=== PATIENT | female | born 1945 | race Caucasian/White ===

== ENCOUNTER 2020-10-21 08:40 | Outpatient (REF) | payer MEDICARE, SELFPAY ==
--- NOTE | ~2020-10-21 | MM_ITS ---
EXAMINATION: BONE DENSITOMETRY CLINICAL INDICATION: Screening for osteoporosis. COMPARISON: Previous BD dated 05/04/2018 and baseline BD dated 06/16/2007. TECHNIQUE: Using a Caption Data DXA System (software version: 13.1) manufactured by [employer], dual-energy x-ray absorptiometry was performed of the lumbar spine and left hip. The images are of good technical quality. Summary results are attached. FINDINGS: AP SPINE L1-L2 (excluding L3 and L4): The data of L1-L4 has been changed to exclude the L3 and L4 vertebral bodies, because degenerative changes at these levels may cause overestimation of lumbar spine density. Current: BMD 0.805 g/cm2, Z-score -1.3, T-score -3.0, osteoporosis, 9.4% increase from previous, 3.9% decrease from baseline (<5% change is not significant). Prior: BMD 0.736 g/cm2. Baseline: BMD 0.838 g/cm2. LEFT FEMUR, NECK: Current: BMD 0.709 g/cm2, Z-score -0.5, T-score -2.4, osteopenia. Prior: BMD 0.717 g/cm2. Baseline: BMD 0.759 g/cm2. LEFT FEMUR, TOTAL: Current: BMD 0.846 g/cm2, Z-score 0.3, T-score -1.3, osteopenia, 8.7% increase from previous, 1.0% increase from baseline (<5% change is not significant). Prior: BMD 0.778 g/cm2. Baseline: BMD 0.838 g/cm2. IDENTIFIED RISK FACTORS: Menopause, height loss, osteoporosis. HISTORY OF FRACTURE: None listed. MEDICATIONS: Calcium, vitamin D, Fosamax. MM/XR DEXA axial skeleton IMPRESSION: 1. DIAGNOSIS: Osteoporosis based on the lowest T-score value of -3.0 in the lumbar spine applying World Health Organization criteria. 2. 10-YEAR FRACTURE RISK PREDICTION, FRAX: Major osteoporotic fracture (clinical spine, forearm, hip or shoulder) 15.5%. Hip fracture 4.4%. 3. Treatment Recommendations: NOF guidelines recommend consideration for treatment in postmenopausal women and men age 50 and older presenting with the following: -A hip or vertebral (clinical or morphometric) fracture. -T-score less than or equal to -2.5 at the femoral neck or spine after appropriate evaluation to exclude secondary causes. -Low bone mass at the hip or spine and a 10-year fracture probability by FRAX of greater than or equal to 3% for hip fracture or greater than or equal to 20% for major osteoporotic fracture based on the [place] adapted WHO algorithm. 4. Other Recommendations: All treatment decisions require clinical judgment and consideration of individual patient factors, including patient preferences, comorbidities, previous drug use, risk factors not captured in the FRAX model (e.g. frailty, falls, vitamin D deficiency, increased bone turnover, interval significant decline in bone density) and possible under or overestimation of fracture risk by FRAX. Additional medical evaluation for secondary cause of low bone mineral density may be appropriate. FUTURE SCAN RECOMMENDATION: People with diagnosed cases of osteoporosis or at high risk for fracture should have regular bone mineral density tests. For patients eligible for Medicare, routine testing is allowed once every 2 years. The testing frequency can be increased to one year for patients who have rapidly progressing disease, those who are receiving or discontinuing medical therapy to restore bone mass, or have additional risk factors.
--- NOTE | ~2020-10-21 | MM_ITS ---
EXAMINATION: MM SCREENING DIGITAL BREAST TOMOSYNTHESIS, BILATERAL CLINICAL INFORMATION: Screening. Asymptomatic. The lifetime risk of breast cancer based on the Tyrer-Cuzick Model is 4.5%. COMPARISON: Mammography: October 16, 2019 and studies dating back to January 17, 2012 TECHNIQUE: Digital breast tomosynthesis is performed in both the craniocaudal and mediolateral oblique views along with computer-aided detection (CAD). Synthesized 2D images are generated from the tomosynthesis. FINDINGS: There are scattered areas of fibroglandular density (ACR BI-RADS breast composition Category b). There are no significant masses, abnormal calcifications, or other abnormalities. MM/MM tomosynthesis screening BI IMPRESSION: There are no significant changes from prior study. ASSESSMENT: BI-RADS 1: Negative RECOMMENDATION: Routine annual mammography screening. This patient's information was entered into a reminder system with a target due date for their next mammogram.
== END 2020-10-21 08:41 | disposition home or self-care (01) ==
LOC: HO.MAMMO 08:40
PROVIDERS: Visit Provider Internal Medicine
DX: Z13.820 Encounter for screening for osteoporosis (principal); Z78.0 Asymptomatic menopausal state; Z12.31 Encounter for screening mammogram for malignant neoplasm of breast
CPT/HCPCS: 77063; 77067; 77080

== ENCOUNTER 2021-04-13 08:04 | Outpatient (REF) | payer MEDICARE, SELFPAY ==
[2021-04-13 10:12] LABS: MANUAL DIFF FLAG NO
[2021-04-13 10:24] LABS: Basophils Absolute Auto 0.1 X10*3/uL (0.0-0.2); Basophils Percent Auto 0.6 % (0-2); Eosinophils Absolute Auto 0.4 X10*3/uL (0.0-0.4); Eosinophils Percent Auto 4.6 % (0-4); Hematocrit 40.1 % (37-47); Hemoglobin 13.1 g/dl (12.0-16.0); Imm Gran Abs Auto 0.03 X10*3/uL (0.00-0.03); Imm Gran Pct Auto 0.3 % (0.0-0.4); Lymphocytes Absolute Auto 2.2 X10*3/uL (1.2-4.9); Lymphocytes Percent Auto 22.6 % (20-40); Mean Corpuscular HGB Conc 32.7 g/dl (31.0-35.0); Mean Corpuscular Hemoglobin 30.2 pg (27.0-33.0); Mean Corpuscular Volume 92.4 fL (80-98); Mean Platelet Volume 10.6 fL (9.4-12.3); Monocytes Absolute Auto 0.9 X10*3/uL (0.1-1.2); Monocytes Percent Auto 9.1 % (2-11); Neutrophils Percent Auto 62.8 % (45-73); Platelet Count 402 X10*3/uL (160-400); Red Blood Count 4.34 X10*6/uL (4.20-5.50); Red Cell Distribution Width 13.2 % (11.0-16.0); White Blood Count 9.5 X10*3/uL (4.8-10.8)
[2021-04-13 11:01] LABS: Alanine Aminotransferase 31 U/L (0-31); Albumin Level 4.1 g/dL (3.5-5.0); Alkaline Phosphatase 66 U/L (39-117); Anion Gap 16 (12-20); Aspartate Amino Transferase 24 U/L (5-31); Bilirubin Total 0.5 mg/dL (0.0-1.0); Blood Urea Nitrogen 38 mg/dL (9-16); Calcium 9.5 mg/dL (8.4-10.2); Carbon Dioxide 24 mmol/L (22-29); Chloride 101 mmol/L (96-108); Cholesterol 200 mg/dL; Estimated Glomerular Filt Rate 37; Glucose Fasting 115 mg/dL (60-99); HDL Cholesterol 66 mg/dL; LDL Cholesterol Calculated 117 mg/dl; Potassium 4.9 mmol/L (3.3-5.1); Sodium 136 mmol/L (135-145); Total Protein 7.3 g/dL (6.5-8.0); Triglycerides 87 mg/dL
== END 2021-04-13 08:05 | disposition home or self-care (01) ==
LOC: HO.10HDL 08:04
PROVIDERS: Visit Provider Internal Medicine
DX: Z00.00 Encounter for general adult medical examination without abnormal findings (principal); E11.9 Type 2 diabetes mellitus without complications
CPT/HCPCS: 36415; 80053; 80061; 85025

== ENCOUNTER 2021-06-15 08:54 | Day surgery (SDC) | payer MEDICARE, SELFPAY ==
[2021-06-05 15:33] VITALS: BMI 26.5
--- NOTE | 2021-06-11 13:52 | MHC.SHP ---
Pre-Procedural Eval Section A Date of Service: 06/11/21 The patient is an INPATIENT: No Changes since office visit: No Cold of Flu in the past 2 weeks, No New Medical Problems, No Changes in Medication and No Patient answered all questions The History & Physical has been completed within 30 days and I have reviewed it.: Yes Section B Chief Complaint: Right Eye Cataract Allergies: Allergies Allergy/AdvReac Type Severity Reaction Status Date / Time Sulfa (Sulfonamide Allergy Mild childhood Verified 06/05/21 15:17 Antibiotics) allergy [Sulfa (Sulfonamides)] per patient-? seizure(was told by mother) Plan Diagnosis/Plan: Unchanged I have reviewed the history and physical and performed a pertinent physical examination on my patient. No changes have occurred unless specified.
--- NOTE | 2021-06-12 13:46 | HO.ANESPROP2 ---
Documented by User: Elaine Clemente NP 06/12/21 13:46 HPI - Anesthesia Eval Consult details Narrative: 75yo F for Right Cataract Multifocal with IOL Insertion PCP cleared No previous cataract on file PMFSH Active Problems Active Problems: All Active Problems (Updated 06/05/21 @ 15:33 by Anita Caal, DARLENE) Adult general medical exam (Acute) Abdominal pain (Acute) Pre-op exam (Acute) Screening for colon cancer (Acute) Hypertension (Acute) Past Medical History Medical History Arthritis Asthma COVID-19 vaccine series completed Hypertension Osteoporosis Screening for colon cancer Family History Family History Father Alzheimers disease Mother CHF (congestive heart failure) Stroke Hypertension Surgical History Surgical History H/O colonoscopy Social History Social History Housing: House Are you a primary child care education coordinator to a significant other at home: No Do you presently have visiting nurse or other home services: No Alcohol intake: current Alcohol intake frequency: holidays/special occasions only Patient Tobacco Use Status: Never used Tobacco e-Cigarette/Vaping Use: Never Used Second Hand Smoke Exposure: No Use of substances other than those prescribed or required for medical reasons: No Have you been hit, kicked, punched, or otherwise hurt by someone within the past year? If so, by whom?: No Are you DNR?: No Advance Directives: Yes Advance Directives Information Provided: No (will bring copy DOS) Advance Directives on File: Yes Advance Directives Date on File: 06/15/21 Recently lost weight without trying: No Eating poorly because of decreased appetite: No Nutrition Risks: No Nutritional Risk Poor oral hygiene: No service: No 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al status: retired Meds Allergies Allergy/AdvReac Type Severity Reaction Status Date / Time Sulfa (Sulfonamide Allergy Mild childhood Verified 06/15/21 10:26 Antibiotics) allergy [Sulfa (Sulfonamides)] per patient-? seizure(was told by mother) Home Medications Medication Instructions Recorded Confirmed Last Taken Type alendronate 70 mg tablet 70 mg PO QWEEK 07/22/20 06/05/21 Unknown History hydrochlorothiazide 25 mg tablet 25 mg PO DAILY tab 01/02/21 06/05/21 Unknown History ascorbic acid (vitamin C) 500 mg 500 mg PO DAILY 06/05/21 06/05/21 Unknown History tablet (Vitamin C) cholecalciferol (vitamin D3) 25 25 mcg PO DAILY 06/05/21 06/05/21 Unknown History mcg (1,000 unit) capsule (Vitamin D3) multivitamin 1 tab PO DAILY 06/05/21 06/05/21 Unknown History Exam Exam Date and Time: June 12, 2021 1346 Height,Weight and Vital Signs: Height 5 ft 3 in Weight 68.039 kg Assessment and Plan Assessment Anesthesia Assessment: Chart Reviewed Documented by User: Hortencia Jones MD 06/15/21 11:18 [facility] Past Medical History Medical History Arthritis Asthma COVID-19 vaccine series completed Hypertension Osteoporosis Screening for colon cancer Family History Family History Father Alzheimers disease Mother CHF (congestive heart failure) Stroke Hypertension Surgical History Surgical History H/O colonoscopy Social History Social History Housing: House Are you a primary child care education coordinator to a significant other at home: No Do you presently have visiting nurse or other home services: No Alcohol intake: current Alcohol intake frequency: holidays/special occasions only Patient Tobacco Use Status: Never used Tobacco e-Cigarette/Vaping Use: Never Used Second Hand Smoke Exposure: No Use of substances other than those prescribed or required for medical reasons: No Have you been hit, kicked, punched, or otherwise hurt by someone within the past year? If so, by whom?: No Are you DNR?: No Advance Directives: Yes Advance Directives Information Provided: No (will bring copy DOS) Advance Directives on File: Yes Advance Directives Date on File: 06/15/21 Recently lost weight without trying: No Eating poorly because of decreased appetite: No Nutrition Risks: No Nutritional Risk Poor oral hygiene: No service: No 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al status: retired Meds Allergies Allergy/AdvReac Type Severity Reaction Status Date / Time Sulfa (Sulfonamide Allergy Mild childhood Verified 06/15/21 10:26 Antibiotics) allergy [Sulfa (Sulfonamides)] per patient-? seizure(was told by mother) Home Medications Medication Instructions Recorded Confirmed Last Taken Type alendronate 70 mg tablet 70 mg PO QWEEK 07/22/20 06/05/21 Unknown History hydrochlorothiazide 25 mg tablet 25 mg PO DAILY tab 01/02/21 06/05/21 Unknown History ascorbic acid (vitamin C) 500 mg 500 mg PO DAILY 06/05/21 06/05/21 Unknown History tablet (Vitamin C) cholecalciferol (vitamin D3) 25 25 mcg PO DAILY 06/05/21 06/05/21 Unknown History mcg (1,000 unit) capsule (Vitamin D3) multivitamin 1 tab PO DAILY 06/05/21 06/05/21 Unknown History Exam Airway Mallampati Class: II TM Dist: >3cm Neck ROM: Full
[2021-06-15 10:31] VITALS: BP 153/78; PULSE 77; RESP 16; TEMP 36.6; O2SAT 99
[2021-06-15] MEDS: Tetracaine HCl/PF 0.5% Oph Sol 4 ML DROPS 1 DROP EYE-RIGHT (10:43)
[2021-06-15] MEDS: Tropicamide 1 % Ophth Sol 3 ML BTL 1 DROP EYE-RIGHT ×3 (10:48→10:55)
[2021-06-15] MEDS: Phenylephrine HCL 2.5% Oph SoL 2 ML BOTTLE 1 DROP EYE-RIGHT ×3 (10:50→10:58)
[2021-06-15] MEDS: Lactated Ringers 500 ML 50 ML IV (10:51)
--- NOTE | 2021-06-15 11:48 | HO.PNOPHT ---
Ophthalmology Procedure Procedure Date of Service: 06/15/21 Ophthalmology Viscoelastic: Healon Duet Dual Pack Pro Ophthalmology Lenses: TECNIS [id number] (20.5) Procedure Notes: PREOPERATIVE DIAGNOSIS: Decreased visual acuity right eye secondary to cataract POSTOPERATIVE DIAGNOSIS: Same PROCEDURE: Right cataract extraction with intraocular lens insertion SURGEON: Lewis Lee M.D. ANESTHESIA: Topical/MAC ESTIMATED BLOOD LOSS: None COMPLICATIONS: None After obtaining informed consent, the patient was brought to the operating room suite and placed in the supine position. After adequate sedation per anesthesia, topical drops of Tetracaine were given to the right eye. The eye was then prepped and draped in the usual sterile fashion. The operating room microscope was then positioned over the operative eye and a lid speculum placed. A paracentesis was created. Viscoelastic was then instilled into the anterior chamber. A three plane incision was then created temporally, utilizing a 2.85 mm keratome. Capsulotomy forceps were then utilized to create a circular tear capsulotomy. Hydrodissection and hydrodelineation were carried out until adequate mobilization of the nucleus occurred. Phacoemulsification was then utilized to remove the dense central nucleus followed by removal of the cortical material utilizing the automated aspiration irrigation unit. Viscoelastic was instilled into the posterior capsular bag followed by placement of a posterior chamber intraocular lens without difficulty. The residual Viscoelastic was then removed utilizing the automated IA machine. The wound was checked and found to be watertight. The patient tolerated the procedure well and the lid speculum was removed. Intracameral injection of Vigamox 0.1 mL followed by a subtenon injection of Kenalog-40 0.2 mL were administered. The patient will be seen in the a.m.
[2021-06-15 12:17] VITALS: BP 135/66; PULSE 75; RESP 16; TEMP 36.6; O2SAT 98
== END 2021-06-15 12:32 | disposition home or self-care (01) ==
PROVIDERS: PCP Internal Medicine; Visit Provider Ophthalmology
PROC: (CPT 66985; principal; 2021-06-15 11:40)
DX: H25.11 Age-related nuclear cataract, right eye (principal); H54.7 Unspecified visual loss; I10 Essential (primary) hypertension; Z79.899 Other long term (current) drug therapy; Z88.2 Allergy status to sulfonamides
CPT/HCPCS: 66984; J2250; J3010; J3300; V2632

== ENCOUNTER 2021-06-29 09:17 | Day surgery (SDC) | payer MEDICARE, SELFPAY ==
[2021-06-05 15:35] VITALS: BMI 26.5
--- NOTE | 2021-06-25 14:23 | MHC.SHP ---
Pre-Procedural Eval Section A Date of Service: 06/25/21 The patient is an INPATIENT: No Changes since office visit: No Cold of Flu in the past 2 weeks, No New Medical Problems, No Changes in Medication and No Patient answered all questions The History & Physical has been completed within 30 days and I have reviewed it.: Yes Section B Chief Complaint: Left Eye Cataract Allergies: Allergies Allergy/AdvReac Type Severity Reaction Status Date / Time Sulfa (Sulfonamide Allergy Mild childhood Verified 06/15/21 10:26 Antibiotics) allergy [Sulfa (Sulfonamides)] per patient-? seizure(was told by mother) Plan Diagnosis/Plan: Unchanged I have reviewed the history and physical and performed a pertinent physical examination on my patient. No changes have occurred unless specified.
[2021-06-29 10:48] VITALS: BP 165/76; PULSE 76; RESP 18; TEMP 36.6; O2SAT 98
[2021-06-29] MEDS: Lactated Ringers 500 ML 50 ML IVCONT (10:55)
[2021-06-29] MEDS: Tetracaine HCl/PF 0.5% Oph Sol 4 ML DROPS 1 DROP EYE-LEFT (10:55)
[2021-06-29] MEDS: Tropicamide 1 % Ophth Sol 3 ML BTL 1 DROP EYE-LEFT ×3 (10:55→10:56)
[2021-06-29] MEDS: Phenylephrine HCL 2.5% Oph SoL 2 ML BOTTLE 1 DROP EYE-LEFT ×3 (10:55→10:57)
--- NOTE | 2021-06-29 12:13 | HO.PNOPHT ---
Ophthalmology Procedure Procedure Date of Service: 06/29/21 Ophthalmology Viscoelastic: Healon Duet Dual Pack Pro Ophthalmology Lenses: TECJOSTIN [id number] (21) Procedure Notes: PREOPERATIVE DIAGNOSIS: Decreased visual acuity left eye secondary to cataract POSTOPERATIVE DIAGNOSIS: Same PROCEDURE: Left cataract extraction with intraocular lens insertion SURGEON: Lewis eLe M.D. ANESTHESIA: Topical/MAC ESTIMATED BLOOD LOSS: None COMPLICATIONS: None After obtaining informed consent, the patient was brought to the operation room suite and placed in the supine position. After adequate sedation per anesthesia, topical drops of Tetracaine were given to the left eye. The eye was then prepped and draped in the usual sterile fashion. The operating room microscope was then positioned over the operative eye and a lid speculum placed. A paracentesis was created. Viscoelastic was then instilled into the anterior chamber. A three plane incision was then created temporally, utilizing a 2.85 mm keratome. Capsulotomy forceps were then utilized to create a circular tear capsulotomy. Hydrodissection and hydrodelineation were carried out until adequate mobilization of the nucleus occurred. Phacoemulsification was then utilized to remove the dense central nucleus followed by removal of the cortical material utilizing the automated aspiration irrigation unit. Viscoat elastic was instilled into the posterior capsular bag followed by placement of a posterior chamber intraocular lens without difficulty. The residual Viscoat elastic was then removed utilizing the automated IA machine. The wound was check and found to be watertight. The patient tolerated the procedure well and the lid speculum was removed. Intracameral injection of Vigamox 0.1 mL followed by a subtenon injection of Kenalog-40 0.2 mL were administered. The patient will be seen in the a.m.
--- NOTE | 2021-06-29 12:23 | HO.ANESPROP2 ---
HPI - Anesthesia Eval Consult details Narrative: left eye cataract PMFSH Active Problems Active Problems: All Active Problems (Updated 06/05/21 @ 15:33 by Anita Caal RN) Adult general medical exam (Acute) Abdominal pain (Acute) Pre-op exam (Acute) Screening for colon cancer (Acute) Hypertension (Acute) Past Medical History Medical History Arthritis Asthma COVID-19 vaccine series completed Hypertension Osteoporosis Screening for colon cancer Family History Family History Father Alzheimers disease Mother CHF (congestive heart failure) Stroke Hypertension Family history of problems with anesthesia: No Surgical History Surgical History H/O colonoscopy History of Problems with Anesthesia: No Social History Social History (Reviewed 04/08/21 @ 14:26 by Elenita Mendez [facility]) Housing: House Are you a primary childcare administrator to a significant other at home: No Do you presently have visiting nurse or other home services: No Alcohol intake: current Alcohol intake frequency: 0-2 drinks per day Patient Tobacco Use Status: Never used Tobacco e-Cigarette/Vaping Use: Never Used Second Hand Smoke Exposure: No Use of substances other than those prescribed or required for medical reasons: No Have you been hit, kicked, punched, or otherwise hurt by someone within the past year? If so, by whom?: No Are you DNR?: No Advance Directives: No Advance Directives Information Provided: Yes (will bring copy DOS) Advance Directives on File: No Advance Directives Date on File: 06/15/21 Recently lost weight without trying: No Eating poorly because of decreased appetite: No Nutrition Risks: No Nutritional Risk Poor oral hygiene: No service: No 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al status: retired Meds Allergies Allergy/AdvReac Type Severity Reaction Status Date / Time Sulfa (Sulfonamide Allergy Mild childhood Verified 06/15/21 10:26 Antibiotics) allergy [Sulfa (Sulfonamides)] per patient-? seizure(was told by mother) Active Medications: Current Medications Lactated Ringer's (Lr) 500 mls @ 50 mls/hr IVCONT .Q10H RHODA Last Admin: 06/29/21 10:55 Dose: 50 mls/hr Documented by: Povidone Iodine (Povidone Iodine 5 % Ophth Soln 30 Ml Bottle) 1 appl EYE-LEFT PREOP PRN PRN Reason: Pre-Op Surgical Implant Prophy Home Medications Medication Instructions Recorded Confirmed Last Taken Type alendronate 70 mg tablet 70 mg PO QWEEK 07/22/20 06/05/21 Unknown History hydrochlorothiazide 25 mg tablet 25 mg PO DAILY tab 01/02/21 06/05/21 Unknown History ascorbic acid (vitamin C) 500 mg 500 mg PO DAILY 06/05/21 06/05/21 Unknown History tablet (Vitamin C) cholecalciferol (vitamin D3) 25 25 mcg PO DAILY 06/05/21 06/05/21 Unknown History mcg (1,000 unit) capsule (Vitamin D3) multivitamin 1 tab PO DAILY 06/05/21 06/05/21 Unknown History Exam Exam Date and Time: June 29, 2021 1223 Height,Weight and Vital Signs: Height 5 ft 3 in Weight 68.039 kg Last Vital Signs Temp 98 F 06/29/21 10:48 Pulse 76 06/29/21 10:48 Resp 18 06/29/21 10:48 BP 165/76 H 06/29/21 10:48 Pulse Ox 98 06/29/21 10:48 Airway Mallampati Class: II TM Dist: >3cm Neck ROM: Full Loose/Missing/Broken Teeth: No Heart: rrr+s1s2 Lungs: cta b/l Assessment and Plan Assessment Anesthesia Assessment: Anesthesia Plan Discussed and Chart Reviewed Final Anesthetic Review Family History of Problems with Anesthesia: No History of Problems with Anesthesia: No NPO: Yes ASA Class: III Final Preanesthetic Review: No Changes in Pt Med Stat, Meds/Allgs Chart Reviewed, Consent Obtained/Reviewed and Anes Risks/Benef Reviewed Patient Risk: Intermediate Procedure Risk: Low Assessment/Block/Sedation in SS: Assess/Block/Sedation-SS Anesthetic Plan Anesthetic Plan: MAC: and Agree w/ Assess. and Plan Disposition: Standard PACU
[2021-06-29 12:44] VITALS: BP 161/59; PULSE 74; RESP 16; TEMP 36.8; O2SAT 99
== END 2021-06-29 12:55 | disposition home or self-care (01) ==
PROVIDERS: PCP Internal Medicine; Visit Provider Ophthalmology
PROC: (CPT 66985; principal; 2021-06-29 12:10)
DX: H25.12 Age-related nuclear cataract, left eye (principal); H52.4 Presbyopia; I10 Essential (primary) hypertension; J45.909 Unspecified asthma, uncomplicated; M81.0 Age-related osteoporosis without current pathological fracture; Z79.899 Other long term (current) drug therapy; Z88.2 Allergy status to sulfonamides
CPT/HCPCS: 66984; J2250; J3010; J3300; V2632

== ENCOUNTER 2021-10-14 07:13 | Day surgery (SDC) | payer MEDICARE, SELFPAY ==
[2021-10-08 12:03] VITALS: BMI 24.9
--- NOTE | 2021-10-13 13:19 | P.CONAN_ITS ---
HPI - Anesthesia Eval Consult details Narrative: 75yo F for Colonoscopy PMFSH Active Problems Active Problems: All Active Problems (Updated 10/08/21 @ 12:08 by Summer Haines, DARLENE) Adult general medical exam (Acute) Abdominal pain (Acute) Pre-op exam (Acute) Screening for colon cancer (Acute) Hypertension (Acute) Past Medical History Medical History (Updated 10/08/21 @ 12:08 by Summer Haines RN) Anxiety Arthritis Asthma COVID-19 vaccine series completed H/O food poisoning Hypertension Osteoporosis Screening for colon cancer Family History Family History Father Alzheimers disease Mother CHF (congestive heart failure) Stroke Hypertension Family history of problems with anesthesia: No Surgical History Surgical History (Updated 10/08/21 @ 11:37 by Summer Haines RN) H/O colonoscopy History of cataract extraction History of Problems with Anesthesia: No Social History Social History Housing: House Are you a primary manager intensive care unit to a significant other at home: No Do you presently have visiting nurse or other home services: No Alcohol intake: current Alcohol intake frequency: 0-2 drinks per day Patient Tobacco Use Status: Never used Tobacco e-Cigarette/Vaping Use: Never Used Second Hand Smoke Exposure: No Use of substances other than those prescribed or required for medical reasons: No Are you DNR?: No Advance Directives: Yes Advance Directives Information Provided: No Advance Directives on File: No Advance Directives Date on File: 06/15/21 Recently lost weight without trying: No Nutrition Risks: No Nutritional Risk service: No 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al status: retired [email or web address] Allergies Allergy/AdvReac Type Severity Reaction Status Date / Time Sulfa (Sulfonamide Allergy Mild childhood Verified 06/15/21 10:26 Antibiotics) allergy [Sulfa (Sulfonamides)] per patient-? seizure(was told by mother) Home Medications Medication Instructions Recorded Confirmed Last Taken Type alendronate 70 mg tablet 70 mg PO QWEEK 07/22/20 10/08/21 Unknown History ascorbic acid (vitamin C) 500 mg 500 mg PO DAILY 06/05/21 10/08/21 Unknown History tablet (Vitamin C) cholecalciferol (vitamin D3) 25 25 mcg PO DAILY 06/05/21 10/08/21 Unknown Hi story mcg (1,000 unit) capsule (Vitamin D3) multivitamin 1 tab PO DAILY 06/05/21 10/08/21 Unknown History Exam Exam Date and Time: October 13, 2021 1319 Height,Weight and Vital Signs: Height 5 ft 4 in Weight 65.771 kg Assessment and Plan Assessment Anesthesia Assessment: Chart Reviewed Final Anesthetic Review Family History of Problems with Anesthesia: No History of Problems with Anesthesia: No
[2021-10-14] MEDS: Lactated Ringers 1,000 ML 100 ML IVCONT (07:48)
[2021-10-14 09:33] VITALS: BP 111/75; PULSE 75; RESP 18; TEMP 36.2; O2SAT 100
--- NOTE | 2021-10-14 09:33 | PM.OP ---
Brief Operative Note Date of Service: 10/13/21 Pre-op diagnosis: Screening Post-op diagnosis: other (Polyps) Procedure: Colonoscopy to the cecum with cold snare polypectomy x 2, and bx/removal of polyp Surgeon: Polo Riley Anesthesia: MAC Was an Senior Site Manager used for this Procedure?: No Estimated blood loss (mL): 2.0 Pathology: other (A. Polyp at 40cm B. Ascending colon polyp C. Polyp at 20cm) Condition: stable Disposition: PACU
[2021-10-14 09:48] VITALS: BP 112/55; PULSE 72; RESP 18; TEMP 36.2; O2SAT 99
--- NOTE | 2021-10-14 10:03 | OP_ITS ---
SURGEON: Polo Riley MD INDICATIONS: The patient presents for evaluation of colorectal cancer screening. Full consent was obtained from her for this, including risks of bleeding and perforation. PREOPERATIVE DIAGNOSIS: Colorectal cancer screening. POSTOPERATIVE DIAGNOSIS: PROCEDURE PERFORMED: Colonoscopy to the cecum with cold snare polypectomy and biopsy and removal of polyp. ESTIMATED BLOOD LOSS: COMPLICATIONS: ANESTHESIA: Monitored anesthesia care. ASSISTANTS: SPECIMENS: POSTOPERATIVE DIAGNOSES: Colorectal cancer screening, colon polyps, diverticulosis, and internal hemorrhoids. DESCRIPTION OF PROCEDURE: The patient was placed in the left lateral decubitus position. The digital rectal exam revealed no abnormalities. The Olympus video pediatric colonoscope was entered into the rectum and advanced easily to the cecum. Once in the cecum, I did identify normal-appearing cecal pouch with appendiceal orifice and normal-appearing ileocecal valve. The entire cecum was well visualized and appeared normal. There was transillumination of light deep in the right lower quadrant. The scope was then slowly withdrawn assessing all mucosal surfaces carefully. Preparation was excellent. In the ascending colon was an approximately 3 mm polyp, which was removed completely with cold biopsy forceps. At 40 cm, was an approximately 5 or 6 mm polyp, which was removed with cold snare polypectomy and recovered by suction. The polypectomy site appeared clean, without any sign of residual polyp nor significant bleeding. At 20 cm, was an approximately 4 mm polyp, which was removed by cold snare polypectomy and recovered by suction. The polypectomy site appeared clean, without any sign of residual polyp nor bleeding. I did not visualize any other polyps, colitis, nor angiodysplasia. There was a mild amount of sigmoid diverticulosis. In the rectum, scope was retroflexed visualizing internal hemorrhoids, but no other pathology. The rectal mucosa appeared normal. The scope was straightened and withdrawn from the patient. She tolerated the procedure well and was returned to recovery area in stable condition. IMPRESSION: 1. Colon polyps. 2. Diverticulosis. 3. Internal hemorrhoids. PLAN: The results of the pathology will be checked. Given these relatively minimal findings and her age, I do not think she will need any further screening colonoscopies. She was advised not to use any aspirin and NSAIDs for 1 week. She will otherwise see me on a p.r.n. basis. MD ANDREY Denise/FAMILIA / [id number]
== END 2021-10-14 10:14 | disposition home or self-care (01) ==
PROVIDERS: PCP Internal Medicine; Visit Provider Internal Medicine
PROC: 0DJD8ZZ Inspection of Lower Intestinal Tract, Via Natural or Artificial Opening Endoscopic (ICD-10-PCS; CPT 45378; principal; 2021-10-14 08:20)
DX: Z12.11 Encounter for screening for malignant neoplasm of colon (principal); K63.5 Polyp of colon; K51.40 Inflammatory polyps of colon without complications; K57.30 Diverticulosis of large intestine without perforation or abscess without bleeding; K64.8 Other hemorrhoids; K59.00 Constipation, unspecified; I10 Essential (primary) hypertension; J45.20 Mild intermittent asthma, uncomplicated; Z79.899 Other long term (current) drug therapy
CPT/HCPCS: 45385; 45380; 88305

== ENCOUNTER 2021-11-03 08:09 | Outpatient (REF) | payer MEDICARE, SELFPAY ==
--- NOTE | ~2021-11-03 | MM_ITS ---
EXAMINATION: MM SCREENING DIGITAL BREAST TOMOSYNTHESIS, BILATERAL CLINICAL INFORMATION: Screening. Asymptomatic. COMPARISON: Mammography: October 21, 2020 and studies dating back to 2011 TECHNIQUE: Digital breast tomosynthesis is performed in both the craniocaudal and mediolateral oblique views along with computer-aided detection (CAD). Synthesized 2D images are generated from the tomosynthesis. FINDINGS: There are scattered areas of fibroglandular density (ACR BI-RADS breast composition Category b). There are no significant masses, abnormal calcifications, or other abnormalities. MM/MM tomosynthesis screening BI IMPRESSION: There are no significant changes from prior study. ASSESSMENT: BI-RADS 1: Negative RECOMMENDATION: Routine annual mammography screening. This patient's information was entered into a reminder system with a target due date for their next mammogram.
== END 2021-11-03 08:10 | disposition home or self-care (01) ==
LOC: HO.MAMMO 08:09
PROVIDERS: PCP Internal Medicine; Visit Provider Internal Medicine
DX: Z12.31 Encounter for screening mammogram for malignant neoplasm of breast (principal)
CPT/HCPCS: 77063; 77067

== ENCOUNTER 2021-12-07 07:54 | Outpatient (REF) | payer MEDICARE, SELFPAY ==
[2021-12-07 10:52] LABS: MANUAL DIFF FLAG NO
[2021-12-07 11:12] LABS: Basophils Absolute Auto 0.1 X10*3/uL (0.0-0.2); Basophils Percent Auto 0.7 % (0-2); Eosinophils Absolute Auto 0.4 X10*3/uL (0.0-0.4); Eosinophils Percent Auto 4.6 % (0-4); Hematocrit 43.1 % (37.0-47.0); Hemoglobin 13.9 g/dl (12.0-16.0); Imm Gran Abs Auto 0.03 X10*3/uL (0.00-0.03); Imm Gran Pct Auto 0.4 % (0.0-0.4); Lymphocytes Absolute Auto 2.1 X10*3/uL (1.2-4.9); Lymphocytes Percent Auto 27.8 % (20-40); Mean Corpuscular HGB Conc 32.3 g/dl (31.0-35.0); Mean Corpuscular Volume 93.1 fL (80.0-98.0); Monocytes Absolute Auto 0.8 X10*3/uL (0.1-1.2); Monocytes Percent Auto 10.1 % (2-11); Neutrophils Absolute Auto 4.3 x10*3/uL (2.0-8.3); Neutrophils Percent Auto 56.4 % (45-73); Platelet Count 323 X10*3/uL (160-400); Red Blood Count 4.63 X10*6/uL (4.20-5.50); Red Cell Distribution Width 13.5 % (11.0-16.0); White Blood Count 7.6 X10*3/uL (4.8-10.8)
[2021-12-07 11:16] LABS: Alanine Aminotransferase 24 U/L (0-31); Albumin Level 4.1 g/dL (3.5-5.0); Alkaline Phosphatase 49 U/L (39-117); Anion Gap 14 (12-20); Aspartate Amino Transferase 23 U/L (5-31); Bilirubin Total 0.5 mg/dL (0.0-1.0); Blood Urea Nitrogen 41 mg/dL (9-16); Carbon Dioxide 26 mmol/L (22-29); Chloride 105 mmol/L (96-108); Cholesterol 231 mg/dL; Estimated Glomerular Filt Rate 40; Glucose Fasting 120 mg/dL (60-99); HDL Cholesterol 80 mg/dL; LDL Cholesterol Calculated 135 mg/dl; Potassium 4.8 mmol/L (3.3-5.1); Sodium 140 mmol/L (135-145); Total Protein 7.5 g/dL (6.5-8.0); Triglycerides 83 mg/dL
[2021-12-07 11:37] LABS: Thyroid Stimulating Hormone 3.27 uIU/mL (0.32-4.0)
== END 2021-12-07 07:55 | disposition home or self-care (01) ==
LOC: HO.10HDL 07:54
PROVIDERS: Visit Provider Internal Medicine
DX: Z00.00 Encounter for general adult medical examination without abnormal findings (principal); Z13.9 Encounter for screening, unspecified; Z13.0 Encounter for screening for diseases of the blood and blood-forming organs and certain disorders involving the immune mechanism
CPT/HCPCS: 36415; 80053; 80061; 84443; 85025

== ENCOUNTER 2022-06-08 11:39 | Outpatient (REF) | payer MEDICARE, SELFPAY | END 2022-06-08 11:40 | disposition home or self-care (01) | LOC: HO.HOSX 11:39 | PROVIDERS: Visit Provider Physician Assistant | DX: Z13.89 Encounter for screening for other disorder (principal) ==

== ENCOUNTER 2022-06-17 13:34 | Outpatient (REF) | payer MEDICARE, SELFPAY ==
--- NOTE | ~2022-06-17 | XR_ITS ---
EXAMINATION: XR knee LT 2V, XR knee RT 2V, XR knee standing BI CLINICAL INFORMATION: Reason for Exam M25.569 - Pain in unspecified knee COMPARISON: None available at the time of this dictation. TECHNIQUE: Bilateral frontal standing, right and left knee lateral and patella sunrise views. FINDINGS: BONES: No fracture or dislocation is present. JOINTS: Mild narrowing of joint spaces medial and lateral compartment suggest early DJD, articular surfaces remain smooth, no significant osteophytes, no joint effusions. SOFT TISSUE: Normal XR/XR knee standing BI IMPRESSION: Very mild degenerative osteoarthritis. No joint effusion.
--- NOTE | ~2022-06-17 | XR_ITS ---
EXAMINATION: XR knee LT 2V, XR knee RT 2V, XR knee standing BI CLINICAL INFORMATION: Reason for Exam M25.569 - Pain in unspecified knee COMPARISON: None available at the time of this dictation. TECHNIQUE: Bilateral frontal standing, right and left knee lateral and patella sunrise views. FINDINGS: BONES: No fracture or dislocation is present. JOINTS: Mild narrowing of joint spaces medial and lateral compartment suggest early DJD, articular surfaces remain smooth, no significant osteophytes, no joint effusions. SOFT TISSUE: Normal XR/XR knee LT 2V IMPRESSION: Very mild degenerative osteoarthritis. No joint effusion.
--- NOTE | ~2022-06-17 | XR_ITS ---
EXAMINATION: XR knee LT 2V, XR knee RT 2V, XR knee standing BI CLINICAL INFORMATION: Reason for Exam M25.569 - Pain in unspecified knee COMPARISON: None available at the time of this dictation. TECHNIQUE: Bilateral frontal standing, right and left knee lateral and patella sunrise views. FINDINGS: BONES: No fracture or dislocation is present. JOINTS: Mild narrowing of joint spaces medial and lateral compartment suggest early DJD, articular surfaces remain smooth, no significant osteophytes, no joint effusions. SOFT TISSUE: Normal XR/XR knee RT 2V IMPRESSION: Very mild degenerative osteoarthritis. No joint effusion.
== END 2022-06-17 13:35 | disposition home or self-care (01) ==
LOC: HO.HOSX 13:34
PROVIDERS: Visit Provider Physician Assistant
DX: M23.91 Unspecified internal derangement of right knee (principal); M25.562 Pain in left knee
CPT/HCPCS: 20610; 73560; 73565; 99202; J1040

== ENCOUNTER 2022-12-02 10:48 | Outpatient (REF) | payer MEDICARE, SELFPAY ==
--- NOTE | ~2022-12-02 | MM_ITS ---
EXAMINATION: MM SCREENING DIGITAL BREAST TOMOSYNTHESIS, BILATERAL CLINICAL INFORMATION: Screening. Asymptomatic. The lifetime risk of breast cancer based on the Tyrer-Cuzick Model is 4.1%. COMPARISON: Mammography: November 03, 2021 and studies dating back to June 17, 2015 TECHNIQUE: Digital breast tomosynthesis is performed in both the craniocaudal and mediolateral oblique views along with computer-aided detection (CAD). Synthesized 2D images are generated from the tomosynthesis. FINDINGS: The breasts are almost entirely fatty (ACR BI-RADS breast composition Category a). There are no significant masses, abnormal calcifications, or other abnormalities. Bilateral circumscribed densities again noted. MM/MM tomosynthesis screening BI IMPRESSION: No significant changes from prior exam. ASSESSMENT: BI-RADS 1: Negative RECOMMENDATION: Routine annual mammography screening. This patient's information was entered into a reminder system with a target due date for their next mammogram.
--- NOTE | ~2022-12-02 | MM_ITS ---
EXAMINATION: BONE DENSITOMETRY CLINICAL INDICATION: Osteoporosis. COMPARISON: Previous BD dated 10/21/2020 and baseline BD dated 06/16/2007. TECHNIQUE: Using a [employer] DXA System (software version: 13.1) manufactured by [employer], dual-energy x-ray absorptiometry was performed of the lumbar spine and left hip. The images are of good technical quality. Summary results are attached. FINDINGS: AP SPINE L1-L2 (excluding L3 and L4): The data of L1-L4 has been changed to exclude the L3 and L4 vertebral bodies, because degenerative sclerosis at these levels may cause overestimation of lumbar spine density. Current: BMD 0.827 g/cm2, Z-score -1.3, T-score -2.8, osteoporosis, 2.7% increase from previous, 1.3% decrease from baseline (<5% change is not significant). Prior: BMD 0.805 g/cm2. Baseline: BMD 0.838 g/cm2. LEFT FEMUR, NECK: Current: BMD 0.742 g/cm2, Z-score -0.4, T-score -2.1, osteopenia. Prior: BMD 0.709 g/cm2. Baseline: BMD 0.759 g/cm2. LEFT FEMUR, TOTAL: Current: BMD 0.866 g/cm2, Z-score 0.5, T-score -1.1, osteopenia, 2.4% increase from previous, 3.3% increase from baseline (<5% change is not significant). Prior: BMD 0.846 g/cm2. Baseline: BMD 0.838 g/cm2. IDENTIFIED RISK FACTORS: Menopause, height loss. HISTORY OF FRACTURE: None listed. MEDICATIONS: Calcium or multivitamin. Vitamin D, Fosamax. MM/XR DEXA axial skeleton IMPRESSION: 1. DIAGNOSIS: Osteoporosis based on the lowest T-score value of -2.8 in the lumbar spine applying World Health Organization criteria. 2. 10-YEAR FRACTURE RISK PREDICTION, FRAX: According to the guidelines, FRAX calculation should only be performed on patients in the osteopenia bone density category. Therefore, FRAX was not performed on this patient. 3. Treatment Recommendations: NOF guidelines recommend consideration for treatment in postmenopausal women and men age 50 and older presenting with the following: -A hip or vertebral (clinical or morphometric) fracture. -T-score less than or equal to -2.5 at the femoral neck or spine after appropriate evaluation to exclude secondary causes. -Low bone mass at the hip or spine and a 10-year fracture probability by FRAX of greater than or equal to 3% for hip fracture or greater than or equal to 20% for major osteoporotic fracture based on the [place] adapted WHO algorithm. 4. Other Recommendations: All treatment decisions require clinical judgment and consideration of individual patient factors, including patient preferences, comorbidities, previous drug use, risk factors not captured in the FRAX model (e.g. frailty, falls, vitamin D deficiency, increased bone turnover, interval significant decline in bone density) and possible under or overestimation of fracture risk by FRAX. Additional medical evaluation for secondary cause of low bone mineral density may be appropriate. FUTURE SCAN RECOMMENDATION: People with diagnosed cases of osteoporosis or at high risk for fracture should have regular bone mineral density tests. For patients eligible for Medicare, routine testing is allowed once every 2 years. The testing frequency can be increased to one year for patients who have rapidly progressing disease, those who are receiving or discontinuing medical therapy to restore bone mass, or have additional risk factors.
== END 2022-12-02 10:49 | disposition home or self-care (01) ==
LOC: HO.MAMMO 10:48
PROVIDERS: Absent Provider Obstetrics & Gynecology; PCP Internal Medicine; Visit Provider Nurse Practitioner Adult Health
DX: Z12.31 Encounter for screening mammogram for malignant neoplasm of breast (principal); M81.0 Age-related osteoporosis without current pathological fracture
CPT/HCPCS: 77063; 77067; 77080

== ENCOUNTER 2022-12-24 07:41 | Outpatient (REF) | payer MEDICARE, SELFPAY ==
[2022-12-24 10:19] LABS: MANUAL DIFF FLAG NO
[2022-12-24 10:32] LABS: Basophils Absolute Auto 0.1 X10*3/uL (0.0-0.2); Basophils Percent Auto 0.7 % (0-2); Eosinophils Absolute Auto 0.5 X10*3/uL (0.0-0.4); Eosinophils Percent Auto 4.6 % (0-4); Hematocrit 42.4 % (37.0-47.0); Hemoglobin 13.4 g/dl (12.0-16.0); Imm Gran Abs Auto 0.05 X10*3/uL (0.00-0.03); Imm Gran Pct Auto 0.5 % (0.0-0.4); Lymphocytes Absolute Auto 3.2 X10*3/uL (1.2-4.9); Lymphocytes Percent Auto 30.2 % (20-40); Mean Corpuscular HGB Conc 31.6 g/dl (31.0-35.0); Mean Corpuscular Hemoglobin 29.8 pg (27.0-33.0); Mean Corpuscular Volume 94.2 fL (80.0-98.0); Mean Platelet Volume 10.9 fL (9.4-12.3); Monocytes Absolute Auto 1.2 X10*3/uL (0.1-1.2); Monocytes Percent Auto 10.9 % (2-11); Neutrophils Absolute Auto 5.6 x10*3/uL (2.0-8.3); Neutrophils Percent Auto 53.1 % (45-73); Platelet Count 358 X10*3/uL (160-400); Red Cell Distribution Width 14.3 % (11.0-16.0); White Blood Count 10.6 X10*3/uL (4.8-10.8)
[2022-12-24 11:21] LABS: Alanine Aminotransferase 34 U/L (0-31); Albumin Level 4.1 g/dL (3.5-5.0); Alkaline Phosphatase 61 U/L (39-117); Anion Gap 17 (12-20); Aspartate Amino Transferase 27 U/L (5-31); Bilirubin Total 0.4 mg/dL (0.0-1.0); Blood Urea Nitrogen 45 mg/dL (9-16); Calcium 9.8 mg/dL (8.4-10.2); Carbon Dioxide 24 mmol/L (22-29); Chloride 107 mmol/L (96-108); Cholesterol 227 mg/dL; Estimated Glomerular Filt Rate 39; Glucose Fasting 110 mg/dL (60-99); HDL Cholesterol 76 mg/dL; LDL Cholesterol Calculated 133 mg/dl; Potassium 4.6 mmol/L (3.3-5.1); Sodium 143 mmol/L (135-145); Triglycerides 90 mg/dL
[2022-12-24 11:23] LABS: Thyroid Stimulating Hormone 2.95 uIU/mL (0.32-4.0)
== END 2022-12-24 07:42 | disposition home or self-care (01) ==
LOC: HO.10HDL 07:41
PROVIDERS: Visit Provider Internal Medicine
DX: E03.9 Hypothyroidism, unspecified (principal); D64.9 Anemia, unspecified; N28.9 Disorder of kidney and ureter, unspecified; E78.5 Hyperlipidemia, unspecified
CPT/HCPCS: 36415; 80053; 80061; 84443; 85025

== ENCOUNTER 2023-06-28 09:27 | Outpatient (AMB) | payer MEDICARE, SELFPAY ==
[2023-06-28 09:34] VITALS: BP 160/68; PULSE 90; O2SAT 98; BMI 28.7
--- NOTE | 2023-06-28 09:34 | A.OFFPC_ITS ---
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 seizure(was told by mother) Medication List - Last Reconciled 06/28/23 by Felipe Love MD albuterol sulfate 90 mcg/actuation 2 puffs PO Q4-6H PRN alendronate 70 mg PO QWEEK ascorbic acid (vitamin C) (Vitamin C) 500 mg PO DAILY cholecalciferol (vitamin D3) (Vitamin D3) 25 mcg PO DAILY fluticasone propionate 110 mcg/actuation (Flovent HFA) 1 puff inhalation ONCE hydrochlorothiazide 25 mg PO DAILY lisinopril 10 mg PO DAILY multivitamin 1 tab PO DAILY naproxen (Naprosyn) 500 mg PO BID PRN Tobacco use date assessed: 12/23/22 Fall risk assessment: No Falls in past year Last assessed Fall Risk: 06/28/23 Dental Screening Dental Screen Date: 06/28/23 Did you have a dental visit in the last 12 months?: Yes Did you have a dental problem in the last 6 months where you did not have access to dental care?: No Was dental information given to patient?: Patient has dentist HPI 6 month f/u HPI Details HTN osteoporosis and asthma; stable [facility] Medical History (Updated 06/28/23 @ 09:53 by Felipe Love MD) Anxiety H/O food poisoning Osteoporosis Arthritis Asthma COVID-19 vaccine series completed Screening for colon cancer Hypertension Surgical History History of cataract extraction H/O colonoscopy Family History Father Alzheimers disease Mother CHF (congestive heart failure) Stroke Hypertension Social History Housing: House Are you a primary health care administrator to a significant other at home: No Do you presently have visiting nurse or other home services: No Alcohol intake: current Alcohol intake frequency: 0-2 drinks per day Patient Tobacco Use Status: Never used Tobacco e-Cigarette/Vaping Use: Never Used Second Hand Smoke Exposure: No Advance Directives Date on File: 06/15/21 service: No 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al status: retired 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 1. Little interest or pleasure in doing things: not at all 2. Feeling down, depressed, or hopeless: not at all 3. Trouble falling or staying asleep, or sleeping too much: not at all 4. Feeling tired or having little energy: not at all 5. Poor appetite or overeating: not at all 6. Feeling bad about yourself - or that you are a failure or have let yourself or your family down: not at all 7. Trouble concentrating on things, such as reading the newspaper or watching television: not at all 8. Moving or speaking so slowly that other people could have noticed. Or the opposite - being so fidgety or restless that you have been moving around a lot more than usual: not at all 9. Thoughts that you would be better off or of hurting yourself in some way: not at all Total score: 0 Depression Screening Interpretation: Negative Depression Screening Done: Yes 97831 - PHQ-9 Billing: Yes Source: Developed by Drs. Polo Mercedes, Cynthia Lowe, Philippe Barth and colleagues, with an educational noe from [employer]. Thrive Questionnaire Date Thrive assessed: 12/23/22 AUDIT C Alcohol Use Questionnaire (AUDIT-C) 1. How often do you have a drink containing alcohol?: 2-3 times a week 2. How many drinks containing alcohol do you have on a typical day when you are drinking?: 1 or 2 3. How often do you have six or more drinks on one occasion?: Never Total Score: 3 Score Reviewed/Action Taken: Yes MARJORIE-7 AMB Questionnaire MARJORIE-7 Date MARJORIE - 7 assessed: 12/23/22 Source: Developed by Drs. Polo Mercedes, Cynthia Lowe, Philippe Barth and colleagues, with an educational noe from [employer]. Review of Systems Const Denies chills, Denies headache(s) and Denies weight loss ENT Denies headache(s) Card Denies chest pain, Denies syncope, Denies irregular heart rhythm and Denies dyspnea Resp Denies chest congestion, Denies cough and Denies dyspnea GI Denies abdominal pain, Denies change in stool character, Denies nausea and Denies vomiting Musc Denies deformity and Denies joint swelling Neuro Denies syncope and Denies headache(s) Physical exam (Primary Care) Vital Signs: Last Vital Signs Pulse 90 06/28/23 09:34 BP 160/68 H 06/28/23 09:34 Pulse Ox 98 06/28/23 09:34 Oxygen Delivery Method Room Air 06/28/23 09:34 BMI result Body Mass Index 28.7 Tobacco/Smoking Status: Tobacco use Status Tobacco use date assessed 12/23/22 06/28/23 09:40 Patient Tobacco Use Status Never used Tobacco 06/28/23 09:40 e-Cigarette/Vaping Use Never Used 06/28/23 09:40 PHQ-9: PHQ-9 Score PHQ-9: Total score 0 06/28/23 09:40 Depression Screening Interpretation: Negative Thrive Assessment: Date of Thrive Assessment Date Thrive assessed 12/23/22 06/28/23 09:40 Const General: cooperative, comfortable, no acute distress and alert Neck Neck: Yes no lymphadenopathy Thyroid: Thyroid normal Resp Effort & Inspection: normal respiratory effort Auscultation: clear to auscultation bilaterally Percussion: percussion normal Cardio Jugular venous distension: no JVD Palpation: normal PMI Rate: regular rate Rhythm: regular rhythm Heart sounds: S1 normal heart sound present and S2 normal heart sound present GI Inspection: Yes normal to inspection Palpation (GI): No hepatosplenomegaly present Skin General skin exam: no rashes or lesions noted Extrem General: Yes no clubbing, cyanosis or edema Assessment and Plan Assessment & Plan (1) Osteoporosis: Code(s): M81.0 - Age-related osteoporosis without current pathological fracture Plan: stable; same rx (2) Asthma: Code(s): J45.909 - Unspecified asthma, uncomplicated Plan: stable; same rx (3) Hypertension: Code(s): I10 - Essential (primary) hypertension Plan: stable; same rx Medications: Changed From albuterol sulfate 90 mcg/actuation 2 puffs PO Q4-6H PRN 8.5 grams 0RF for muscle spasm To albuterol sulfate 90 mcg/actuation 2 puffs PO Q4-6H PRN 8.5 grams 3RF for muscle spasm 3 months Coding Level of Care Code Est Pt Level 4 (74854) Diagnoses Osteoporosis M81.0 Asthma J45.909 Hypertension I10
== END 2023-06-28 09:52 | disposition home or self-care (01) ==
PROVIDERS: Visit Provider Internal Medicine
DX: M81.0 Age-related osteoporosis without current pathological fracture (principal); J45.909 Unspecified asthma, uncomplicated; I10 Essential (primary) hypertension
CPT/HCPCS: 99214

== ENCOUNTER 2023-12-06 10:25 | Outpatient (REF) | payer MEDICARE, SELFPAY | END 2023-12-06 10:26 | disposition home or self-care (01) | LOC: HO.MAMMO 10:25 | PROVIDERS: PCP Internal Medicine; Visit Provider Internal Medicine | DX: Z12.31 Encounter for screening mammogram for malignant neoplasm of breast (principal) | CPT/HCPCS: 77063; 77067 ==

== ENCOUNTER → 2023-12-06 10:45 | Outpatient (BNV) | payer MEDICARE, SELFPAY | PROVIDERS: PCP Internal Medicine; Visit Provider Radiology Diagnostic Radiology | DX: Z12.31 Encounter for screening mammogram for malignant neoplasm of breast (principal) | CPT/HCPCS: 77063; 77067 ==

== ENCOUNTER 2024-01-06 08:35 | Outpatient (AMB) | payer MEDICARE, SELFPAY ==
[2024-01-06 08:37] VITALS: BP 146/74; PULSE 74; O2SAT 98; BMI 28.8
--- NOTE | 2024-01-06 08:37 | MHC.PC.OV ---
Vital Signs 01/06/24 08:37 Height 5 ft 4 in Weight 168 lb BMI 28.8 BP 146/74 H Blood Pressure Location Lt brachial Position Sitting Pulse 74 Pulse Source Pulse Oximeter Pulse Oximetry (%) 98 Oxygen Delivery Method Room Air Intake Visit Reasons: 6mth f/u Stereo Compiler Required: No Reconciliation Machine Operator: Not Required per policy Accompanied by: Self / Same As Patient Allergies Sulfa (Sulfonamide Antibiotics) [Sulfa (Sulfonamides)] Allergy (Mild, Verified 01/06/24 08:37) childhood allergy per patient-? seizure(was told by mother) Tobacco use date assessed: 01/06/24 Fall risk assessment: No Falls in past year Last assessed Fall Risk: 01/06/24 Dental Screening Dental Screen Date: 01/06/24 Did you have a dental visit in the last 12 months?: Yes Did you have a dental problem in the last 6 months where you did not have access to dental care?: No Was dental information given to patient?: Patient has dentist HPI 6mth f/u HPI Details has dyspnea on exertion and no chest pain PFSH Medical History (Updated 01/06/24 @ 08:58 by Felipe Love MD) Anxiety H/O food poisoning Osteoporosis Arthritis Asthma COVID-19 vaccine series completed Screening for colon cancer Hypertension Surgical History History of cataract extraction H/O colonoscopy Family History Father Alzheimers disease Mother CHF (congestive heart failure) Stroke Hypertension Social History Housing: House Are you a primary care manager to a significant other at home: No Do you presently have visiting nurse or other home services: No Alcohol intake: current Alcohol intake frequency: 0-2 drinks per day Patient Tobacco Use Status: Never used Tobacco e-Cigarette/Vaping Use: Never Used Second Hand Smoke Exposure: No Advance Directives Date on File: 06/15/21 service: No 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al status: retired 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 1. Little interest or pleasure in doing things: more than half the days 2. Feeling down, depressed, or hopeless: more than half the days 3. Trouble falling or staying asleep, or sleeping too much: not at all 4. Feeling tired or having little energy: nearly every day 5. Poor appetite or overeating: not at all 6. Feeling bad about yourself - or that you are a failure or have let yourself or your family down: not at all 7. Trouble concentrating on things, such as reading the newspaper or watching television: not at all 8. Moving or speaking so slowly that other people could have noticed. Or the opposite - being so fidgety or restless that you have been moving around a lot more than usual: not at all 9. Thoughts that you would be better off or of hurting yourself in some way: not at all Total score: 7 84130 - PHQ-9 Billing: Yes Source: Developed by Drs. Polo Mercedes, Cynthia Lowe, Philippe Barth and colleagues, with an educational noe from [employer]. Thrive Questionnaire Date Thrive assessed: 01/06/24 I am a: Patient What is your living situation today?: I have a steady place to live Within the past 12 months, did the food you bought not last and you didn't have the money to get more?: Never true Within the past 12 months, did you worry whether your food would run out before you got money to buy more?: Never true Do you have trouble paying for medicines?: No Do you have trouble getting transportation to medical appointments?: No Do you have trouble paying your heating and electricity bill?: No Do you have trouble taking care of your child, family member or friend?: No Do you have trouble with day-to-day activities such as bathing, preparing meals, shopping, managing finances, etc.?: No Are you currently unemployed and looking for a job?: No Are you interested in more education?: No Please select the resources that you would like help with: None THRIVE Score: 0 MARJORIE-7 AMB Questionnaire MARJORIE-7 Date MARJORIE - 7 assessed: 01/06/24 Feeling nervous, anxious, or on edge: 0 = Not at all Not being able to stop or control worryin = Not at all Worrying too much about different things: 0 = Not at all Trouble relaxin = Not at all Being so restless that it is hard to sit still: 0 = Not at all Becoming easily annoyed or irritable: 0 = Not at all Feeling afraid as if something awful might happen: 0 = Not at all Total MARJORIE-7 score (0-4 normal; 5-9 mild; 10-14 moderate; 15-21 severe): 0 Source: Developed by Drs. Polo Mercedes, Cynthia Lowe, Philippe Barth and colleagues, with an educational noe from [employer]. Review of Systems Const Denies chills, Denies headache(s) and Denies weight loss ENT Denies headache(s) Card Denies chest pain, Denies syncope and Denies irregular heart rhythm Resp Denies chest congestion and Denies cough GI Denies abdominal pain, Denies change in stool character, Denies nausea and Denies vomiting Musc Denies deformity and Denies joint swelling Neuro Denies syncope and Denies headache(s) Physical exam (Primary Care) Vital Signs: Last Vital Signs Pulse 74 01/06/24 08:37 BP 146/74 H 01/06/24 08:37 Pulse Ox 98 01/06/24 08:37 Oxygen Delivery Method Room Air 01/06/24 08:37 BMI result Body Mass Index 28.8 Tobacco/Smoking Status: Tobacco use Status Tobacco use date assessed 01/06/24 01/06/24 08:41 Patient Tobacco Use Status Never used Tobacco 01/06/24 08:41 e-Cigarette/Vaping Use Never Used 01/06/24 08:41 PHQ-9: PHQ-9 Score PHQ-9: Total score 7 01/06/24 08:46 Thrive Assessment: Date of Thrive Assessment Date Thrive assessed 01/06/24 01/06/24 08:41 Const General: cooperative, comfortable, no acute distress and alert Neck Neck: Yes no lymphadenopathy Thyroid: Thyroid normal Resp Effort & Inspection: normal respiratory effort Auscultation: clear to auscultation bilaterally Percussion: percussion normal Cardio Jugular venous distension: no JVD Palpation: normal PMI Rate: regular rate Rhythm: regular rhythm Heart sounds: S1 normal heart sound present and S2 normal heart sound present GI Inspection: Yes normal to inspection Palpation (GI): No hepatosplenomegaly present Skin General skin exam: no rashes or lesions noted Extrem General: Yes no clubbing, cyanosis or edema Assessment and Plan Assessment & Plan (1) Dyspnea on exertion: Code(s): R06.09 - Other forms of dyspnea Plan: stress test; labs Orders: Orders Lipid Panel Today Z13.220 - Encounter for screening for lipoid disorders Complete Blood Count Auto Diff Today Z13.0 - Encounter for screening for diseases of the blood and blood-forming organs and certain disorders involving the immune mechanism Thyroid Stimulating Hormone Today Z13.29 - Encounter for screening for other suspected endocrine disorder Comprehensive [place]. Panel Fast Today Z13.9 - Encounter for screening, unspecified Referrals Cardiology Referral R06.09 - Other forms of dyspnea Medications: New sertraline 25 mg PO DAILY 30 tabs 2RF Coding Level of Care Code Est Pt Level 3 (13413) Diagnoses Dyspnea on exertion R06.09
== END 2024-01-06 08:58 | disposition home or self-care (01) ==
PROVIDERS: PCP Internal Medicine; Visit Provider Internal Medicine
DX: R06.09 Other forms of dyspnea (principal)
CPT/HCPCS: 99213

== ENCOUNTER 2024-01-10 08:29 | Outpatient (REF) | payer MEDICARE, SELFPAY ==
[2024-01-10 08:45] LABS: MANUAL DIFF FLAG NO
[2024-01-10 08:47] LABS: Basophils Absolute Auto 0.1 X10*3/uL (0.0-0.2); Basophils Percent Auto 0.6 % (0-2); Eosinophils Absolute Auto 0.6 X10*3/uL (0.0-0.4); Eosinophils Percent Auto 6.6 % (0-4); Hematocrit 41.6 % (37.0-47.0); Hemoglobin 13.5 g/dl (12.0-16.0); Imm Gran Abs Auto 0.03 X10*3/uL (0.00-0.03); Imm Gran Pct Auto 0.4 % (0.0-0.4); Lymphocytes Absolute Auto 2.2 X10*3/uL (1.2-4.9); Lymphocytes Percent Auto 25.9 % (20-40); Mean Corpuscular HGB Conc 32.5 g/dl (31.0-35.0); Mean Corpuscular Hemoglobin 30.5 pg (27.0-33.0); Mean Corpuscular Volume 94.1 fL (80.0-98.0); Mean Platelet Volume 10.1 fL (9.4-12.3); Monocytes Absolute Auto 0.7 X10*3/uL (0.1-1.2); Monocytes Percent Auto 8.4 % (2-11); Neutrophils Absolute Auto 4.8 x10*3/uL (2.0-8.3); Neutrophils Percent Auto 58.1 % (45-73); Platelet Count 342 X10*3/uL (160-400); Red Blood Count 4.42 X10*6/uL (4.20-5.50); Red Cell Distribution Width 14.2 % (11.0-16.0); White Blood Count 8.3 X10*3/uL (4.8-10.8)
[2024-01-10 09:08] LABS: Alanine Aminotransferase 25 U/L (0-31); Albumin Level 4.1 g/dL (3.5-5.0); Alkaline Phosphatase 58 U/L (39-117); Anion Gap 13 (12-20); Aspartate Amino Transferase 21 U/L (5-31); Bilirubin Total 0.3 mg/dL (0.0-1.0); Blood Urea Nitrogen 33 mg/dL (9-16); Calcium 9.3 mg/dL (8.4-10.2); Carbon Dioxide 24 mmol/L (22-29); Chloride 109 mmol/L (96-108); Cholesterol 193 mg/dL (<200); Estimated Glomerular Filt Rate 42; Glucose Fasting 147 mg/dL (60-99); HDL Cholesterol 70 mg/dL (>40); LDL Cholesterol Calculated 106 mg/dL (<100); Potassium 4.3 mmol/L (3.3-5.1); Sodium 142 mmol/L (135-145); Total Protein 7.4 g/dL (6.5-8.0); Triglycerides 85 mg/dL (<150)
[2024-01-10 09:23] LABS: Thyroid Stimulating Hormone 3.56 uIU/mL (0.32-4.0)
== END 2024-01-10 08:30 | disposition home or self-care (01) ==
LOC: HO.10HDL 08:29
PROVIDERS: Visit Provider Internal Medicine
DX: Z13.220 Encounter for screening for lipoid disorders (principal); Z13.0 Encounter for screening for diseases of the blood and blood-forming organs and certain disorders involving the immune mechanism; Z13.29 Encounter for screening for other suspected endocrine disorder; Z20.2 Contact with and (suspected) exposure to infections with a predominantly sexual mode of transmission
CPT/HCPCS: 36415; 80053; 80061; 84443; 85025

== ENCOUNTER 2024-04-30 13:38 | Outpatient (AMB) | payer MEDICARE, SELFPAY ==
--- NOTE | 2024-04-30 14:05 | MHC.OFFVIS ---
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 seizure(was told by mother) Medication List - Last Reconciled 04/30/24 by Luis Daniel Pulliam MD albuterol sulfate 90 mcg/actuation 2 puffs PO Q4-6H PRN 3 months alendronate 70 mg PO QWEEK ascorbic acid (vitamin C) (Vitamin C) 500 mg PO DAILY cholecalciferol (vitamin D3) (Vitamin D3) 25 mcg PO DAILY hydrochlorothiazide 25 mg PO DAILY lisinopril 10 mg PO DAILY multivitamin 1 tab PO DAILY naproxen (Naprosyn) 500 mg PO BID PRN sertraline 25 mg PO DAILY HPI Comments Details: Thank you for referring Manuela in cardiology consultation today for exertional shortness of breath. She is a pleasant 78-year-old woman with prior history of hypertension for 10 years borderline hyperlipidemia currently not on treatment and mild obesity. Patient said over the last 6-8 months she has been getting progressively increasing shortness of breath which is affecting the quality of life. She was able to go up for walks including on hills and which she is not able to do that as she gets short of breath. She also gets short of breath when she reaches the top of the flight of stairs. These are new symptoms. Denies any orthopnea, PND, leg edema. Denies any associated chest tightness or pressure with the symptoms. She denies any prolonged palpitation irregular heartbeat. No leg edema or abdominal distension. She says she does have asthma and has wheezing but uses albuterol only when needed. She does not notice any progressive wheezing with exercise. FORMERLY [facility], [facility] Medical History Anxiety H/O food poisoning Osteoporosis Arthritis Asthma COVID-19 vaccine series completed Screening for colon cancer Hypertension Surgical History History of cataract extraction H/O colonoscopy Family History Father Alzheimers disease Mother CHF (congestive heart failure) Stroke Hypertension Social History Housing: House Are you a primary child care attendant school to a significant other at home: No Do you presently have visiting nurse or other home services: No Alcohol intake: current Alcohol intake frequency: 0-2 drinks per day Patient Tobacco Use Status: Never used Tobacco e-Cigarette/Vaping Use: Never Used Second Hand Smoke Exposure: No Advance Directives Date on File: 06/15/21 service: No 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al status: retired 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 Cognitive needs: No Hearing needs: No Vision needs: Yes (glasses) Review of Systems Const Denies chills, Denies fatigue, Denies fever(s), Denies frequent falls, Denies weakness, Denies weight gain and Denies weight loss Eyes Denies loss of vision ENT Denies dizziness Card Denies chest pain, Denies leg edema, Denies lightheadedness, Denies palpitations, Denies dyspnea, Denies dyspnea on exertion, Denies orthopnea and Denies other (loss of consciousness) Resp Denies cough, Denies dyspnea, Denies dyspnea on exertion and Denies wheezing GI Denies hematochezia and Denies change in stool character Denies urinary frequency and Denies dysuria Musc Denies abnormal gait, Denies muscle weakness, Denies numbness, Denies radiating pain into limb and Denies tingling Skin/Breast Denies nail changes and Denies rash Neuro Denies abnormal gait, Denies dizziness, Denies frequent falls, Denies loss of vision, Denies memory loss, Denies numbness, Denies tingling and Denies weakness Psych Denies depression and Denies memory loss Endo Denies fatigue and Denies palpitations Jluis/Lymph Reports easy bruising and Reports other (anemia) Aller/Immun Denies wheezing Physical Exam Vital Signs: Last Vital Signs Pulse 85 04/30/24 14:11 BP 132/74 04/30/24 14:11 BMI result Body Mass Index 28.8 Const General: cooperative, comfortable, no acute distress, alert, awake, Physically active and well groomed Nutritional Appearance: obese Orientation/consciousness: patient oriented x3 Limitations: no limitations HEENT Head: Yes normocephalic and Yes atraumatic Neck Neck: Yes trachea midline, Yes supple and Yes no JVD Resp Effort & Inspection: normal respiratory effort Auscultation: clear to auscultation bilaterally and diminished lung sounds Cardio Jugular venous distension: no JVD Palpation: normal PMI Rate: regular rate Rhythm: regular rhythm Heart sounds: S1 normal heart sound present, S2 normal heart sound present, no click, no gallops, no murmurs and no rubs GI Auscultation: normal bowel sounds Skin General skin exam: no rashes or lesions noted Neuro General: patient oriented x3 and no focal motor deficits Extrem General: Yes no clubbing, cyanosis or edema Office Procedures EKG Details: EKG shows normal sinus rhythm with right bundle-branch block with inferior T-wave inversions which could be related to repolarization abnormality or ischemia [id number], Complete Assessment & Plan Assessment & Plan (1) Dyspnea on exertion: Code(s): R06.09 - Other forms of dyspnea Category: Medical Plan: Exertional shortness of breath in this elderly woman with risk factor of hypertension, hyperlipidemia, obesity with abnormal EKG. Potential possible causes were discussed with her. Will suggest exercise myocardial perfusion imaging to rule out prognostically significant obstructive coronary artery disease. Nature of testing as well as physiologic significance was discussed with her. Will also suggest an echocardiogram to evaluate LV systolic and diastolic function to evaluate for valvular abnormality. It is possible that she has no underlying structural heart issues and possibly related to lung/deconditioning/weight. Will pursue other workup and treatment plan based on the findings of cardiac testing. This was discussed with her. She understands agrees. Blood pressure is currently well optimized advised to monitor blood pressure at home maintain a log. Goal blood pressure less than 130/84. Low-salt diet was discussed. Goal LDL less than 70 mg/dL. Will follow up in the clinic in 6 weeks time, sooner p.r.n.. Thank you for allowing me to partake in the care Orders: Orders CA stress test Today R06.09 - Other forms of dyspnea NM cardiolite stress test 2 Weeks R06.09 - Other forms of dyspnea, R07.9 - Chest pain, unspecified CA echo transthoracic complete Today R06.09 - Other forms of dyspnea Coding Level of Care Code Est Pt Level 4 (09956) Diagnoses Dyspnea on exertion R06.09 CPT Codes EKG - CPT: 93079-[id number], Complete ([id number])
[2024-04-30 14:11] VITALS: BP 132/74; PULSE 85; BMI 28.8
== END 2024-04-30 14:46 | disposition home or self-care (01) ==
PROVIDERS: PCP Internal Medicine; Visit Provider Internal Medicine Cardiovascular Disease
DX: R06.09 Other forms of dyspnea (principal)
CPT/HCPCS: 93010; 99214

== ENCOUNTER → 2024-04-30 13:38 | Outpatient (BNVA) | payer MEDICARE, SELFPAY | PROVIDERS: PCP Internal Medicine; Visit Provider Internal Medicine Cardiovascular Disease | DX: R06.09 Other forms of dyspnea (principal); R07.9 Chest pain, unspecified; I10 Essential (primary) hypertension | CPT/HCPCS: 93005; 99212 ==

== ENCOUNTER → 2024-05-08 08:55 | Outpatient (REF) | payer MEDICARE, SELFPAY ==
--- NOTE | 2024-05-08 08:58 | CA_ITS ---
Transthoracic Echocardiogram Patient (Last, First, Middle): Karina Diaz A Gender: Female Date of : 1945 Age: 78 Procedure Date: 05/08/2024 Procedure Type: Transthoracic Echocardiogram Location: OP Height: 162.56 cm Weight: 75.75 kg BSA: 1.81 m2 Heart Rate: 80 bpm BP: 130 / 70 mmHg Drums Teacher: SB Referring MD: Luis Daniel Pulliam MD Symptoms: R06.09 - Other forms of dyspnea Study Quality: Adequate ECG Rhythm: Sinus Conclusions: - The left ventricular systolic function is normal. The calculated ejection fraction is 63% by biplane method. - There is moderate septal asymmetric hypertrophy. - No obvious valvular pathology seen on this study. Findings Left Ventricle Normal left ventricular cavity size. The left ventricular systolic function is normal. The calculated ejection fraction is 63% by biplane method. There is no evidence of regional wall motion abnormalities. Evidence suggests grade I (mild) diastolic dysfunction. There is moderate septal asymmetric hypertrophy. LV peak GLS -19.3%. Right Ventricle Normal right ventricular cavity size. There is mildly decreased right ventricular systolic function. Atria Both atria are normal in size. Aortic Valve There is a normal trileaflet aortic valve. There is mild calcification of the aortic valve. There is no aortic valve stenosis. There is no aortic valve regurgitation. Mitral Valve The mitral valve appears normal. There is no mitral valve regurgitation. There is no mitral valve stenosis. Pulmonic Valve The pulmonic valve is likely normal. Tricuspid Valve There is mild tricuspid valve regurgitation. There is no evidence of pulmonary hypertension. Great Vessels The asc aorta is normal in size. Venous The inferior vena cava is normal in size and collapses greater than 50% with inspiration. Pericardium/Pleural There is no evidence of pericardial effusion. Prior Study Comparison No prior study available for comparison. Recommendations, Care & Conclusions No obvious valvular pathology seen on this study. Measurements 2D Linear Measurements IVSd: 1.34 0.6-0.9/0.6-1.0 cm LVIDd: 4.06 3.9-5.3/4.2-5.9 cm LVIDd Index: 2.24 2.4-3.2/2.2-3.1 cm/m2 LVIDs: 2.81 2.0-3.6 cm LVPWd: 0.78 0.7-1.1 cm LA Diam: 2.70 2.7-3.8/3.0-4.0 cm LAIDs Index: 1.49 1.5-2.3 cm/m2 LV Mass: 175.87 67-162/88-224 g LV Mass Index: 97.17 43-95/49-115 g/m2 LVOT Diam: 1.90 3.0+(-)1.3 cm 2D Systolic Function EF 4C: 62.00 >55% EF 2C: 63.20 >55% EF BiP: 62.60 >55% Mitral Valve MV Pk E: 0.50 MV PK A: 0.78 MV Decel Time: 251.00 E/A: 0.60 E'Lateral: 6.64 E'Medial: 4.24 E/E' Med: 11.80 E/E' Lat: 7.50 PHT: 73.00 MVA PHT: 3.01 Decel Tama: 2.00 Aortic Valve AoV Pk Kali: 1.14 AoV Pk Grad: 5.00 ELIO: 2.64 LVOT LVOT Pk Kali: 0.98 LVOT Mn Kali: 0.62 LVOT VTI: 0.21 LVOT Pk Grad: 4.00 LVOT Mn Grad: 2.00 LVOT Diam: 1.90 LVOT Area: 2.84 Diastolic Function MV Pk E: 0.50 MV Pk A: 0.78 E/A: 0.60 E'Medial: 4.24 E/E' Med: 11.80 E' Laterial: 6.64 E/E' Lat: 7.50 Right Ventricle TAPSE (mm): 15.20 TVS' Kali: 9.46 Tricuspid Valve TR Pk Kali: 2.46 TR Pk Grad: 24.00 RA Press: 3.00 RVSP: 27.00 Great Vessels Aorta Sinus of Valsalva: 3.40 2.0-3.5 cm Ao Asc: 2.80 2.1-3.4 cm Pulmonary Valve PV Pk Kali: 0.93 Peak PV Grad: 3.00 Updated in Other Vendor System with Status of Final Khoi Smith MD electronically signed on 05/10/2024 9:49:07 AM with status of Final
== END ==
LOC: HO.CARD 08:55
PROVIDERS: PCP Internal Medicine; Visit Provider Internal Medicine Cardiovascular Disease
DX: R06.09 Other forms of dyspnea (principal)
CPT/HCPCS: 93306; 93356

== ENCOUNTER → 2024-05-08 08:58 | Outpatient (BNV) | payer MEDICARE, SELFPAY | PROVIDERS: PCP Internal Medicine; Visit Provider Internal Medicine | DX: I42.2 Other hypertrophic cardiomyopathy (principal); I36.1 Nonrheumatic tricuspid (valve) insufficiency; I35.8 Other nonrheumatic aortic valve disorders | CPT/HCPCS: 93306; 93356 ==

== ENCOUNTER 2024-07-09 09:16 | Outpatient (AMB) | payer MEDICARE, SELFPAY ==
--- NOTE | 2024-07-09 09:17 | A.OFFPC_ITS ---
Vital Signs 07/09/24 09:18 Height 5 ft 4 in Weight 164 lb 8 oz BMI 28.2 BP 120/68 Blood Pressure Location Lt brachial Position Sitting Pulse 60 Pulse Source Pulse Oximeter Pulse Oximetry (%) 97 Oxygen Delivery Method Room Air Intake Visit Reasons: 6mth f/u Intake Note: Patient is here to follow up on Asthma, HTN. Nursery Rn Required: No Rug Cutter Helper: Not Required per policy Accompanied by: Self / Same As Patient Allergies Sulfa (Sulfonamide Antibiotics) [Sulfa (Sulfonamides)] Allergy (Mild, Verified 07/09/24 09:18) childhood allergy per patient-? seizure(was told by mother) Medication List - Last Reconciled 07/09/24 by Felipe Love MD albuterol sulfate 90 mcg/actuation 2 puffs PO Q4-6H PRN 3 months alendronate 70 mg PO QWEEK ascorbic acid (vitamin C) (Vitamin C) 500 mg PO DAILY cholecalciferol (vitamin D3) (Vitamin D3) 25 mcg PO DAILY hydrochlorothiazide 25 mg PO DAILY lisinopril 10 mg PO DAILY multivitamin 1 tab PO DAILY naproxen (Naprosyn) 500 mg PO BID PRN sertraline 25 mg PO DAILY Tobacco use date assessed: 07/09/24 Fall risk assessment: No Falls in past year Last assessed Fall Risk: 07/09/24 Dental Screening Dental Screen Date: 01/06/24 HPI 6mth f/u HPI Details HTN on Rx; doing well PFSH Medical History Anxiety H/O food poisoning Osteoporosis Arthritis Asthma COVID-19 vaccine series completed Screening for colon cancer Hypertension Surgical History History of cataract extraction H/O colonoscopy Family History Father Alzheimers disease Mother CHF (congestive heart failure) Stroke Hypertension Social History Housing: House Are you a primary childbirth and infant care teacher to a significant other at home: No Do you presently have visiting nurse or other home services: No Alcohol intake: current Alcohol intake frequency: 0-2 drinks per day Patient Tobacco Use Status: Never used Tobacco e-Cigarette/Vaping Use: Never Used Second Hand Smoke Exposure: No Advance Directives Date on File: 06/15/21 service: No 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al status: retired 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 How many drinks containing alcohol do you have on a typical day when you are drinking?: 1 or 2 3. How often do you have six or more drinks on one occasion?: Never Total Score: 0 MARJORIE-7 AMB Questionnaire MARJORIE-7 Date MARJORIE - 7 assessed: 01/06/24 Source: Developed by Drs. Polo Mercedes, Cynthia Lowe, Philippe Barth and colleagues, with an educational noe from [employer]. Review of Systems Const Denies chills, Denies headache(s) and Denies weight loss ENT Denies headache(s) Card Denies chest pain, Denies syncope, Denies irregular heart rhythm and Denies dyspnea Resp Denies chest congestion, Denies cough and Denies dyspnea GI Denies abdominal pain, Denies change in stool character, Denies nausea and Denies vomiting Musc Denies deformity and Denies joint swelling Neuro Denies syncope and Denies headache(s) Physical exam (Primary Care) Vital Signs: Last Vital Signs Pulse 60 07/09/24 09:18 BP 120/68 07/09/24 09:18 Pulse Ox 97 07/09/24 09:18 Oxygen Delivery Method Room Air 07/09/24 09:18 BMI result Body Mass Index 28.2 Tobacco/Smoking Status: Tobacco use Status Tobacco use date assessed 07/09/24 07/09/24 09:27 Patient Tobacco Use Status Never used Tobacco 07/09/24 09:27 e-Cigarette/Vaping Use Never Used 07/09/24 09:27 Thrive Assessment: Date of Thrive Assessment Date Thrive assessed 01/06/24 07/09/24 09:27 Const General: cooperative, comfortable, no acute distress and alert Neck Neck: Yes no lymphadenopathy Thyroid: Thyroid normal Resp Effort & Inspection: normal respiratory effort Auscultation: clear to auscultation bilaterally Percussion: percussion normal Cardio Jugular venous distension: no JVD Palpation: normal PMI Rate: regular rate Rhythm: regular rhythm Heart sounds: S1 normal heart sound present and S2 normal heart sound present GI Inspection: Yes normal to inspection Palpation (GI): No hepatosplenomegaly present Skin General skin exam: no rashes or lesions noted Extrem General: Yes no clubbing, cyanosis or edema Results AMB Hemoglobin A1c AMB Hemoglobin A1c 6.8 % Last Edit by ARSH Romo on 07/09/24 09:29 Results Reviewed Results Reviewed: Laboratory Last Values Hgb A1c (Clinic) 6.8 % (4.0-6.0) H 07/09/24 09:17 Coding Level of Care Code Est Pt Level 3 (82648) Diagnoses Hypertension I10 Assessment & Plan Assessment & Plan (1) Hypertension: Code(s): I10 - Essential (primary) hypertension Category: Medical Plan: stable; same rx Orders: Orders Lipid Panel Today Z13.220 - Encounter for screening for lipoid disorders Thyroid Stimulating Hormone Today Z13.29 - Encounter for screening for other suspected endocrine disorder AMB Hemoglobin A1c Today Z13.9 - Encounter for screening, unspecified Complete Blood Count Auto Diff Today Z13.0 - Encounter for screening for diseases of the blood and blood-forming organs and certain disorders involving the immune mechanism Comprehensive Storden. Panel Fast Today Z13.9 - Encounter for screening, unspecified Medications: Refilled albuterol sulfate 90 mcg/actuation 2 puffs PO Q4-6H 3 months PRN 8.5 grams 3RF for muscle spasm
[2024-07-09 09:18] VITALS: BP 120/68; PULSE 60; O2SAT 97; BMI 28.2
== END 2024-07-09 09:54 | disposition home or self-care (01) ==
PROVIDERS: PCP Internal Medicine; Visit Provider Internal Medicine
DX: I10 Essential (primary) hypertension (principal); Z13.9 Encounter for screening, unspecified

== ENCOUNTER → 2024-07-09 09:16 | Outpatient (BNVA) | payer MEDICARE, SELFPAY | PROVIDERS: PCP Internal Medicine; Visit Provider Internal Medicine | DX: I10 Essential (primary) hypertension (principal); Z13.1 Encounter for screening for diabetes mellitus | CPT/HCPCS: 83036; 99212 ==

== ENCOUNTER 2024-07-11 07:03 | Outpatient (REF) | payer MEDICARE, SELFPAY ==
[2024-07-11 07:17] LABS: MANUAL DIFF FLAG NO
[2024-07-11 07:27] LABS: Basophils Absolute Auto 0.1 X10*3/uL (0.0-0.2); Basophils Percent Auto 0.6 % (0-2); Eosinophils Absolute Auto 0.5 X10*3/uL (0.0-0.4); Eosinophils Percent Auto 4.7 % (0-4); Hematocrit 43.5 % (37.0-47.0); Imm Gran Abs Auto 0.05 X10*3/uL (0.00-0.03); Imm Gran Pct Auto 0.5 % (0.0-0.4); Lymphocytes Absolute Auto 3.1 X10*3/uL (1.2-4.9); Lymphocytes Percent Auto 28.4 % (20-40); Mean Corpuscular HGB Conc 32.2 g/dl (31.0-35.0); Mean Corpuscular Hemoglobin 30.2 pg (27.0-33.0); Mean Corpuscular Volume 93.8 fL (80.0-98.0); Mean Platelet Volume 10.1 fL (9.4-12.3); Monocytes Percent Auto 9.3 % (2-11); Neutrophils Absolute Auto 6.2 x10*3/uL (2.0-8.3); Neutrophils Percent Auto 56.5 % (45-73); Platelet Count 383 X10*3/uL (160-400); Red Blood Count 4.64 X10*6/uL (4.20-5.50); Red Cell Distribution Width 13.7 % (11.0-16.0); White Blood Count 10.9 X10*3/uL (4.8-10.8)
[2024-07-11 08:10] LABS: Alanine Aminotransferase 23 U/L (0-31); Albumin Level 4.2 g/dL (3.5-5.0); Alkaline Phosphatase 60 U/L (39-117); Anion Gap 17 (12-20); Aspartate Amino Transferase 24 U/L (5-31); Bilirubin Total 0.4 mg/dL (0.0-1.0); Blood Urea Nitrogen 36 mg/dL (9-16); Calcium 10.1 mg/dL (8.4-10.2); Carbon Dioxide 24 mmol/L (22-29); Chloride 106 mmol/L (96-108); Cholesterol 209 mg/dL (<200); Estimated Glomerular Filt Rate 39; Glucose Fasting 135 mg/dL (60-99); HDL Cholesterol 65 mg/dL (>40); LDL Cholesterol Calculated 126 mg/dL (<100); Potassium 4.3 mmol/L (3.3-5.1); Sodium 143 mmol/L (135-145); Total Protein 7.7 g/dL (6.5-8.0); Triglycerides 94 mg/dL (<150)
[2024-07-11 08:37] LABS: Thyroid Stimulating Hormone 4.85 uIU/mL (0.32-4.0)
== END 2024-07-11 07:04 | disposition home or self-care (01) ==
LOC: HO.LAB 07:03
PROVIDERS: PCP Internal Medicine; Visit Provider Internal Medicine
DX: Z13.9 Encounter for screening, unspecified (principal); Z13.220 Encounter for screening for lipoid disorders; Z13.29 Encounter for screening for other suspected endocrine disorder; Z13.0 Encounter for screening for diseases of the blood and blood-forming organs and certain disorders involving the immune mechanism
CPT/HCPCS: 36415; 80053; 80061; 84443; 85025

== ENCOUNTER → 2024-08-21 09:42 | Outpatient (REF) | payer MEDICARE, SELFPAY ==
--- NOTE | ~2024-08-21 | NM_ITS ---
EXERCISE MYOCARDIAL PERFUSION STUDY INDICATION: Abnormal EKG, shortness of breath TECHNIQUE: The patient was brought in for an exercise perfusion study on 08/21/2024. Patient performed exercise as per Jose protocol and was injected 25 mCi of sestamibi once target heart rate was achieved. Images were obtained using the SPECT gamma camera interlaced with the gating device. Images were obtained in supine position. Resting perfusion study was performed on 08/23/2024. Patient was administered 25 mCi of sestamibi intravenously at rest. Images were then obtained in supine position. Total DLP 90 mGy-cm. Images were processed with the software and compared side to side in short axis, horizontal long axis and vertical long axis views. FINDINGS: Raw aquisition reviewed. The stress perfusion study showed no significant perfusion abnormality. The gated study shows normal LV systolic function; calculated LVEF appears erroneous. Visually normal. LV cavity is normal in size. The gated study shows hyperdynamic wall thickening and contraction of segments. Resting study shows no significant perfusion abnormality. Gating at rest reveals hyperdynamic wall motion with visually normal LVEF. The findings are consistent with no reversible or fixed perfusion defects. NM/NM cardiolite stress test IMPRESSION: 1. Myocardial perfusion imaging study shows normal myocardial perfusion. 2. Gated LVEF is 26% during stress and 28% during rest. 3. Transient ischemic dilatation not present. EKG component of the test reported separately. Electronically signed by: Khoi Smith MD 08/26/2024 01:32 PM [facility]
--- NOTE | 2024-08-21 09:45 | CA_ITS ---
Acquisition Time: 2024-08-21 09:49:20 Total Exercise Time: 00:05:01 Test Indications: Abnormal ECG,Dyspnea Medications: ALBUTEROL ALENDRONATE HCTZ LISINOPRIL SERTRALINE NAPROXEN Protocol: DESTINY Max HR: 127 BPM 88% of Pred: 143 BPM Max BP: 190/80 mmHG Max Work Load: 6.0 METS Exercise Stress Test with exercise 5 mins 1 sec of Destiny Protocol, lowered speed to 2.2mph at Stage 2, achieving 88% MPHR, with moderate SOB, no chest discomfort, without any arrythmias, with baseline hypertension- normal response with exercise. Without EKG changes meeting criteria for ischemia. In recovery, breathing returned to baseline. BP improved. Nuclear images pending. Test reviewed with Dr. Smith. Referred By: Luis Daniel Pulliam Electronically Signed By: Zaheer Alatorre
--- OUTSIDE RECORDS SUMMARY | 2024-08-21 10:06 | XMS_ITS | Patient Health Record ---
Author Organization [facility] Address [address] [place] [address] Care Team Providers Care Dumpman Name Role Phone Kate DURON, Felipe Primary Care Provider Polo Nichols Unavailable [phone] ALLERGIES Allergen (clinical drug ingredient) Drug/Non Drug Allergy documented on EMR Reaction Allergy Type Onset Date Status Substance with sulfonamide structure and antibacterial mechanism of action (substance) Sulfa Antibiotics Unknown Drug Allergy Active REASON FOR REFERRAL No Information MEDICATIONS Medication SIG (Take, Route, Frequency, Duration) Notes Start Date End Date Status Multivitamin Adult A ctive Vitamin C Active Calcium Active Vitamin E Active Fiber Adult Gummies Active Lisinopril 10 MG TAKE 1 TABLET BY SURESH TH DAILY Oral for 90 Active hydroCHLOROthiazide 25 MG TAKE 1 TABLET BY MOUTH DAILY Oral for 90 Active Alendronate Sodium 70 MG Oral for 84 Active IMMUNIZATIONS Vaccine Route Administration Date Status Comme nts Influenza Unknown 04/15/2021 Administered SOCIAL HISTORY Tobacco Use: Social History Observation Description Date Details (start date - stop date) Never Smoker NA - NA Sex Assigned At : Social History Observation Description Sex Assigned At Unknown Tobacco Use/Smoking Question Answer Notes Patient is a nonsmoker Alcohol Screen Question Answer Notes Did you have a drink contain ing alcohol in the past year? Yes How often did you have a dri nk containing alcohol in the past year? 2 to 4 times a month (2 points) How many drinks did you have on a typical day when you were drinking in the past year? 1 or 2 drinks (0 point) How often did you have 6 or more drinks on one occasion in the past year? Never (0 point) Points 2 Interpretation Negative PROBLEMS Problem Type ICD Code Onset Dates Problem Status W/U Status Risk SNOMED Code Notes Problem Constipation, unspecified constipation type (K59.00) Active confirmed 91262872 Problem Encounter for screening for malignant neoplasm of colon (Z12.11) Active confirmed 043110576 Problem Diverticulosis of colon (K57.30) Active confirmed Diverticulosi s of colon (487617523) PLAN OF TREATMENT Pending Test Test Name Order Date Pathology 10/14/2021 Future Test Test Name Order Date COLONOSCOPY 05/26/2021 Insurance Providers Payer Name Payer Address Payer Phone Subscriber Number Group Number Insured Name Patient Relationship to Insured Coverage Start Date Coverage End Date MEDICARE OF [place] [address] [place] [address] [id number] VLADISLAV HA Self - patient is the insured [employer] ATTN CLAIMS [address] [place] [address] [id number] [id number] HA Self - patient is the insured MEDICAL (GENERAL) HISTORY Medical History History ICD Code Hypertension Asthma - mild intermittent Denies AR,DM,CVA,renal disease Urinary incontinence Negative colonoscopy approx 13 yrs ago w [facility] Dr. Wills Surgical History Surgery Date(Month/Year) Cataracts scheduled for 06/2021
== END ==
LOC: HO.CARD 09:42
PROVIDERS: PCP Internal Medicine; Visit Provider Internal Medicine Cardiovascular Disease
DX: R06.09 Other forms of dyspnea (principal); R07.9 Chest pain, unspecified
CPT/HCPCS: 78452; 93017; A9500

== ENCOUNTER → 2024-08-21 09:45 | Outpatient (BNV) | payer MEDICARE, SELFPAY | PROVIDERS: PCP Internal Medicine | DX: R06.02 Shortness of breath (principal); I10 Essential (primary) hypertension | CPT/HCPCS: 78452; 93016; 93018 ==

== ENCOUNTER 2024-08-29 10:42 | Outpatient (AMB) | payer MEDICARE, SELFPAY ==
[2024-08-29 10:47] VITALS: BP 140/78; PULSE 78; BMI 27.6
--- NOTE | 2024-08-29 10:47 | MHC.OFFVIS ---
Vital Signs 08/29/24 10:47 Height 5 ft 4 in Weight 160 lb 14.999 oz BMI 27.6 BP 140/78 H Blood Pressure Location Lt brachial Position Sitting Pulse 78 Pulse Source Pulse Oximeter Intake Visit Reasons: r/s 06/11/24 6 wks f/u s/p mibi/echo Allergies Sulfa (Sulfonamide Antibiotics) [Sulfa (Sulfonamides)] Allergy (Mild, Verified 07/09/24 09:18) childhood allergy per patient-? seizure(was told by mother) Medication List - Last Reconciled 08/29/24 by Luis Daniel Pulliam MD albuterol sulfate 90 mcg/actuation 2 puffs PO Q4-6H PRN 3 months ascorbic acid (vitamin C) (Vitamin C) 500 mg PO DAILY cholecalciferol (vitamin D3) (Vitamin D3) 25 mcg PO DAILY hydrochlorothiazide 25 mg PO DAILY lisinopril 10 mg PO DAILY multivitamin 1 tab PO DAILY naproxen (Naprosyn) 500 mg PO BID PRN sertraline 25 mg PO DAILY HPI Comments Details: Karina comes for follow-up. Underwent a treadmill stress test where she walked for about 5-6 Mets and had no EKG changes with normal myocardial perfusion. Echocardiogram shows normal LV ejection fraction without significant diastolic dysfunction or pulmonary hypertension valvular dysfunction. She continues to have exertional shortness of breath which she is concerned about. She denies any other cardiac symptoms. No exertional chest pain. No palpitations. No orthopnea, PND. [facility] Medical History Anxiety H/O food poisoning Osteoporosis Arthritis Asthma COVID-19 vaccine series completed Screening for colon cancer Hypertension Surgical History History of cataract extraction H/O colonoscopy Family History Father Alzheimers disease Mother CHF (congestive heart failure) Stroke Hypertension Social History Housing: House Are you a primary palliative care nurse practitioner to a significant other at home: No Do you presently have visiting nurse or other home services: No Alcohol intake: current Alcohol intake frequency: 0-2 drinks per day Patient Tobacco Use Status: Never used Tobacco e-Cigarette/Vaping Use: Never Used Second Hand Smoke Exposure: No Advance Directives Date on File: 06/15/21 service: No 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al status: retired 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 Cognitive needs: No Hearing needs: No Vision needs: Yes (glasses) Review of Systems Const Denies weakness ENT Denies dizziness Card Denies chest pain, Denies chest pain with activity, Denies syncope, Denies rapid heart rate, Denies pedal edema, Denies edema, Denies leg edema, Denies lightheadedness, Denies palpitations, Denies dyspnea, Denies dyspnea on exertion and Denies orthopnea Resp Denies cough, Denies dyspnea and Denies dyspnea on exertion GI Denies hematochezia and Denies change in stool character Musc Denies abnormal gait, Denies muscle cramps, Denies muscle weakness, Denies numbness, Denies radiating pain into limb and Denies tingling Neuro Denies abnormal gait, Denies dizziness, Denies syncope, Denies numbness, Denies tingling and Denies weakness Endo Denies palpitations Physical Exam Vital Signs: Last Vital Signs Pulse 78 08/29/24 10:47 BP 140/78 H 08/29/24 10:47 BMI result Body Mass Index 27.6 Const General: cooperative, comfortable, no acute distress, alert and awake Nutritional Appearance: obese Orientation/consciousness: patient oriented x3 Neck Neck: Yes trachea midline, Yes supple and Yes no JVD Resp Effort & Inspection: normal respiratory effort Auscultation: clear to auscultation bilaterally Cardio Jugular venous distension: no JVD Palpation: normal PMI Rate: regular rate Rhythm: regular rhythm Heart sounds: S1 normal heart sound present, S2 normal heart sound present, no click, no gallops, no murmurs and no rubs GI Auscultation: normal bowel sounds Neuro General: patient oriented x3 and no focal motor deficits Assessment & Plan Assessment & Plan (1) Dyspnea on exertion: Code(s): R06.09 - Other forms of dyspnea Category: Medical Plan: Shortness of breath on exertion in this elderly woman with no obvious cardiac abnormalities noted at moderate workload. Possibilities include underlying pulmonary parenchymal disease, have taken the liberty to refer her to pulmonology for further evaluation with pulmonary function test and/or imaging. Also possibly related to her weight and deconditioning. Have strongly recommended to start increasing her activity level slowly. She understands agrees. Continue risk factor modification with aggressive blood pressure control which is currently well optimized. Goal LDL less than 100 mg/dL. Will follow up in the clinic if need be. Thank you for allowing me to partake in her care Orders: Referrals Pulmonology Referral R06.09 - Other forms of dyspnea Coding Level of Care Code Est Pt Level 3 (24880) Complex EM visit Add On G2211 Diagnoses Dyspnea on exertion R06.09
== END 2024-08-29 11:00 | disposition home or self-care (01) ==
PROVIDERS: PCP Internal Medicine; Visit Provider Internal Medicine Cardiovascular Disease
DX: R06.09 Other forms of dyspnea (principal)
CPT/HCPCS: 99213; G2211

== ENCOUNTER → 2024-08-29 10:42 | Outpatient (BNVA) | payer MEDICARE, SELFPAY | PROVIDERS: PCP Internal Medicine; Visit Provider Internal Medicine Cardiovascular Disease | DX: R06.09 Other forms of dyspnea (principal) | CPT/HCPCS: 99212 ==

== ENCOUNTER 2024-10-03 10:29 | Outpatient (AMB) | payer MEDICARE, SELFPAY ==
[2024-10-03 10:32] VITALS: BP 147/67; PULSE 105; O2SAT 98; BMI 27.1
--- NOTE | 2024-10-03 10:32 | A.OFFVIS_ITS ---
Vital Signs 10/03/24 10:32 Height 5 ft 4 in Weight 158 lb BMI 27.1 BP 147/67 H Blood Pressure Location Rt brachial Position Sitting Pulse 105 H Pulse Source Doppler Pulse Oximetry (%) 98 Oxygen Delivery Method Room Air Intake Visit Reasons: dyspnea Allergies Sulfa (Sulfonamide Antibiotics) [Sulfa (Sulfonamides)] Allergy (Mild, Verified 10/03/24 10:37) childhood allergy per patient-? seizure(was told by mother) HPI HPI dyspnea: Details: 78-year-old lady, lifetime nonsmoker, with underlying history of asthma since 17 years of age controlled on albuterol MDI as needed, referred for evaluation of dyspnea on exertion that occurs after patient walks for approximately 10 minutes. She has had recent negative cardiac evaluation. She denies family history of lung disease. She has been employed with no exposure to industrial dusts. Patient does have environmental allergies. She denies having pets. [facility] Medical History Anxiety H/O food poisoning Osteoporosis Arthritis Asthma COVID-19 vaccine series completed Screening for colon cancer Hypertension Surgical History History of cataract extraction H/O colonoscopy Family History Father Alzheimers disease Mother CHF (congestive heart failure) Stroke Hypertension Social History Housing: House Are you a primary toddler caregiver to a significant other at home: No Do you presently have visiting nurse or other home services: No Alcohol intake: current Alcohol intake frequency: 0-2 drinks per day Patient Tobacco Use Status: Never used Tobacco e-Cigarette/Vaping Use: Never Used Second Hand Smoke Exposure: No Advance Directives Date on File: 06/15/21 service: No 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al status: retired 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 Cognitive needs: No Hearing needs: No Vision needs: Yes (glasses) Review of Systems Const Denies daytime sleepiness, Denies excessive sweating, Denies fatigue, Denies fever(s), Denies lethargy, Denies malaise, Denies night sweats, Denies snoring and Denies weight loss Eyes Denies blurry vision and Denies itchy eyes ENT Denies nasal congestion, Denies post nasal drip, Denies sinus pain, Denies sinus pressure and Denies other ( Thrush) Card Denies chest pain, Denies pedal edema, Denies dyspnea, Reports dyspnea on exertion, Denies orthopnea and Denies paroxysmal nocturnal dyspnea Resp Denies cough, Denies hemoptysis, Denies excessive phlegm production, Denies dyspnea, Reports dyspnea on exertion, Denies snoring and Denies wheezing GI Denies abdominal pain and Denies heartburn Musc Denies myalgias, Denies arthralgias and Denies joint swelling Skin/Breast Denies rash Neuro Denies memory loss and Denies seizure-like activity Psych Denies abnormal sleep pattern, Denies anxiety and Denies memory loss Endo Denies excessive sweating, Denies fatigue and Denies heat intolerance Jluis/Lymph Denies easy bruising Aller/Immun Denies itchy eyes, Denies seasonal rhinorrhea and Denies wheezing Physical Exam Vital Signs: Last Vital Signs Pulse 105 H 10/03/24 10:32 BP 147/67 H 10/03/24 10:32 Pulse Ox 98 10/03/24 10:32 Oxygen Delivery Method Room Air 10/03/24 10:32 BMI result Body Mass Index 27.1 Const General: no acute distress and alert Nutritional Appearance: not obese Orientation/consciousness: Other orientation findings ( oriented) HEENT Head: Yes atraumatic Eyes General: appearance normal, both eyes and all related structures Sclerae: sclerae normal EOM: EOMs intact bilaterally Neck Neck: Yes supple Lymphatic: no lymphadenopathy noted Resp Effort & Inspection: normal respiratory effort and no use of accessory muscles Auscultation: clear to auscultation bilaterally Cardio Rate: regular rate Rhythm: regular rhythm Heart sounds: no gallops, no murmurs and no rubs Skin General skin exam: other ( warm) Extrem General: No clubbing, No cyanosis and No edema Assessment & Plan Assessment & Plan (1) Asthma: Code(s): J45.909 - Unspecified asthma, uncomplicated Category: Medical Plan: Underlying asthma of unclear severity at this time reasonably controlled on albuterol MDI. Will obtain full PFT. (2) Dyspnea on exertion: Code(s): R06.09 - Other forms of dyspnea Category: Medical Plan: Unclear etiology. Will obtain chest x-ray and PFT to evaluate pulmonary component, if no obvious etiology would be noted, will consider obtaining cardiopulmonary exercise testing. Orders: Orders PFT pulmonary function test Today R06.09 - Other forms of dyspnea XR chest 2V Today R06.09 - Other forms of dyspnea Coding Level of Care Code New Pt Level 4 (28734) Diagnoses Asthma J45.909 Dyspnea on exertion R06.09
--- OUTSIDE RECORDS SUMMARY | 2024-10-03 11:08 | XMS_ITS | Patient Health Record ---
Author Organization [facility] Address [address] [place] [address] Care Team Providers Care Director Network Development Name Role Phone Kate DURON, Felipe Primary Care Provider Polo Nichols Unavailable [phone] ALLERGIES Allergen (clinical drug ingredient) Drug/Non Drug [...] Constipation, unspecified constipation type (K59.00) Active confirmed 27723980 Problem Encounter for screening for malignant neoplasm of colon (Z12.11) Active confirmed 863857610 Problem Diverticulosis of colon (K57.30) Active confirmed Diverticulosi s of colon (224592925) PLAN OF TREATMENT Pending Test Test Name Order Date Pathology 10/14/2021 Future Test Test Name Order Date COLONOSCOPY 05/26/2021 Insurance Providers Payer Name Payer Address Payer Phone Subscriber Number Group Number Insured Name Patient Relationship to Insured Coverage Start Date Coverage End Date MEDICARE OF [place] [address] [place] [address] [id number] VLADISLAV HA Self - patient is the insured MED[employer] ATT[employer] CLAIMS [address] [place] [address] [id number] VLADISLAV HA Self - patient is the insured MEDICAL (GENERAL) HISTORY Medical History History ICD Code Hypertension Asthma - mild intermittent Denies [place],DM,CVA,renal disease Urinary incontinence Negative colonoscopy approx 13 yrs ago w [facility] Dr. Wills Surgical History Surgery Date(Month/Year) Cataracts scheduled for 06/2021
== END 2024-10-03 10:53 | disposition home or self-care (01) ==
PROVIDERS: PCP Internal Medicine; Visit Provider Internal Medicine Pulmonary Disease
DX: J45.909 Unspecified asthma, uncomplicated (principal); R06.09 Other forms of dyspnea
CPT/HCPCS: 99204

== ENCOUNTER → 2024-10-03 10:29 | Outpatient (BNVA) | payer MEDICARE, SELFPAY | PROVIDERS: PCP Internal Medicine; Visit Provider Internal Medicine Pulmonary Disease | DX: J45.909 Unspecified asthma, uncomplicated (principal); R06.09 Other forms of dyspnea | CPT/HCPCS: 99202 ==

== ENCOUNTER 2024-10-26 08:05 | Outpatient (REF) | payer MEDICARE, SELFPAY ==
--- NOTE | ~2024-10-26 | XR_ITS ---
EXAMINATION: XR CHEST 2 VIEWS HISTORY: R06.09 - Other forms of dyspnea COMPARISON: There are no prior studies for comparison. FINDINGS: PA and lateral views of the chest are submitted. The lungs are expanded and clear. There is no pleural effusion, pneumothorax, or pulmonary vascular congestion. The heart is normal in size. There is degenerative disc disease of the spine. XR/XR chest 2V IMPRESSION: Clear lungs. Electronically signed by: Polo Galvan MD 10/26/2024 10:37 AM EDT
--- OUTSIDE RECORDS SUMMARY | 2024-10-26 08:12 | XMS_ITS | Patient Health Record ---
Author Organization [facility] Address [address] [place] [address] Care Team Providers Care Bobcat Driver/Labor Name Role Phone Kate DURON, Felipe Primary Care Provider Polo Nichols Unavailable [phone] Allergies Allergen (clinical drug ingredient) Drug/Non Drug Allergy documented on EMR Reaction Allergy Type Onset Date Status Substance with sulfonamide structure and antibacterial mechanism of action (substance) Sulfa Antibiotics Unknown Drug Allergy Active Reason For Referral No Information Medications Medication SIG (Take, Route, Frequency, Duration) Notes Start Date End Date Status Multivitamin Adult A ctive Vitamin C Active Calcium Active Vitamin E Active Fiber Adult Gummies Active Lisinopril 10 MG TAKE 1 TABLET BY SURESH TH DAILY Oral for 90 Active hydroCHLOROthiazide 25 MG TAKE 1 TABLET BY MOUTH DAILY Oral for 90 Active Alendronate Sodium 70 MG Oral for 84 Active Immunizations Vaccine Route Administration Date Status Comme nts Influenza Unknown 04/15/2021 Administered Social History Tobacco Use: Social History Observation Description Date Details (start date - stop date) Never Smoker NA - NA Tobacco Use/Smoking Question Answer Notes Patient is [...] Never (0 point) Points 2 Interpretation Negative Section Notes: Nonsmoker; occ wine Problems Problem Type SNOMED Code ICD Code Onset Dates Problem Status W/U Status Risk Notes Problem [id number] Encounter for screening for malignant neoplasm of colon (Z12.11) Active confirmed Problem 09016840 Constipation, unspecified constipation type (K59.00) Active confirmed Problem Diverticulosis of colon (778445703) Diverticulosis of colon (K57.30) Active confirmed Plan Of Treatment Pending Test Test Name Order Date Pathology 10/14/2021 Future Test Test Name Order Date COLONOSCOPY 05/26/2021 Insurance Providers Payer Name Payer Address Payer Phone Subscriber Number Group Number Insured Name Patient Relationship to Insured Coverage Start Date Coverage End Date MED[place]ARE OF [place] [address] [place] [address] [id number] VLADISLAV HA Self - patient is the insured MED[employer] ATT[employer] CLAIMS [address] [place] [address] [phone] [id number] VLADISLAV HA Self - patient is the insured Medical (General) History Medical History History ICD Code Hypertension Asthma - mild intermittent Denies [place],DM,CVA,renal disease Urinary incontinence Negative colonoscopy approx 13 yrs ago w ith Dr. Wills Surgical History Surgery Date(Month/Year) Cataracts scheduled for 06/2021
== END 2024-10-26 08:06 | disposition home or self-care (01) ==
LOC: HO.XRAY 08:05
PROVIDERS: PCP Internal Medicine; Visit Provider Internal Medicine Pulmonary Disease
DX: R06.09 Other forms of dyspnea (principal)
CPT/HCPCS: 71046

== ENCOUNTER → 2024-10-26 08:10 | Outpatient (BNV) | payer MEDICARE, SELFPAY | PROVIDERS: PCP Internal Medicine; Visit Provider Radiology Diagnostic Radiology | DX: R06.09 Other forms of dyspnea (principal) | CPT/HCPCS: 71046 ==

== ENCOUNTER 2024-11-02 09:42 | Outpatient (REF) | payer MEDICARE, SELFPAY ==
--- NOTE | 2024-11-02 09:46 | PFT_ITS ---
Flows: FEV1: 59 % of predicted at 1.18 L FVC: 63 % of predicted at 1.65 L FEV1/FVC: 70 % Bronchodilator response: Absent Volumes: Total lung capacity: 71 % of predicted at 3.45 L Residual volume: 90 % of predicted at 1.92 L Slow vital capacity: 57 % of predicted at 1.53 L Expiratory reserve volume: 67 % of predicted at 0.43 L Diffusion capacity: Mildly decreased, corrects to normal after adjustment for alveolar ventilation. Impression: Moderate restrictive ventilatory defect with no bronchodilator response. Combination of restrictive ventilatory defect and decreased diffusion capacity suggests underlying pulmonary parenchymal disease. Clinical correlation is advised. MTDD
[2024-11-02 10:33] VITALS: PULSE 83; O2SAT 93
--- OUTSIDE RECORDS SUMMARY | 2024-11-02 11:10 | XMS_ITS | Patient Health Record ---
Author Organization [facility] Address [address] [place] [address] Care Team Providers Care Signwriter Name Role Phone Kate DURON, Felipe Primary Care Provider Polo Nichols Unavailable [phone] Allergies Allergen (clinical drug ingredient) Drug/Non Drug [...] Problem Status W/U Status Risk Notes Problem [id number] Encounter for screening for malignant neoplasm of colon (Z12.11) Active confirmed Problem 66497765 Constipation, unspecified constipation type (K59.00) Active confirmed Problem Diverticulosis of colon (844534275) Diverticulosis of colon (K57.30) Active confirmed Plan Of Treatment Pending Test Test Name Order Date Pathology 10/14/2021 Future Test Test Name Order Date COLONOSCOPY 05/26/2021 Insurance Providers Payer Name Payer Address Payer Phone Subscriber Number Group Number Insured Name Patient Relationship to Insured Coverage Start Date Coverage End Date [place]ICARE OF [place] [address] [place] [address] [phone] [id number] VLADISLAV HA Self - patient is the insured MED[employer] ATT[employer] CLAIMS [address] [place] [address] [phone] [id number] VLADISLAV HA Self - patient is the insured Medical (General) History Medical History History ICD Code Hypertension Asthma - mild intermittent Denies [place],DM,CVA,renal disease Urinary incontinence Negative colonoscopy approx 13 yrs ago w ith Dr. Wills Surgical History Surgery Date(Month/Year) Cataracts scheduled for 06/2021
== END 2024-11-02 09:43 | disposition home or self-care (01) ==
LOC: HO.RESP 09:42
PROVIDERS: PCP Internal Medicine; Visit Provider Internal Medicine Pulmonary Disease
DX: R06.09 Other forms of dyspnea (principal)
CPT/HCPCS: 94010; 94640; 94727; 94729

== ENCOUNTER → 2024-11-02 09:46 | Outpatient (BNV) | payer MEDICARE, SELFPAY | PROVIDERS: PCP Internal Medicine; Visit Provider Internal Medicine Pulmonary Disease | DX: R06.09 Other forms of dyspnea (principal) | CPT/HCPCS: 94060; 94727; 94729 ==

== ENCOUNTER 2024-11-09 10:34 | Outpatient (AMB) | payer MEDICARE, SELFPAY ==
[2024-11-09 10:46] VITALS: BP 142/62; PULSE 92; O2SAT 95; BMI 26.6
--- NOTE | 2024-11-09 10:46 | MHC.OFFVIS ---
Vital Signs 11/09/24 10:46 Height 5 ft 4 in Weight 155 lb BMI 26.6 BP 142/62 H Blood Pressure Location Lt brachial Position Sitting Pulse 92 Pulse Source Doppler Pulse Oximetry (%) 95 Oxygen Delivery Method Room Air Intake Visit Reasons: Dyspnea/PFT Follow Up Allergies Sulfa (Sulfonamide Antibiotics) [Sulfa (Sulfonamides)] Allergy (Mild, Verified 11/09/24 10:51) childhood allergy per patient-? seizure(was told by mother) HPI HPI Dyspnea/PFT Follow Up: Details: 78-year-old lady, lifetime nonsmoker, with underlying history of asthma since 17 years of age controlled on albuterol MDI as needed, referred for evaluation of dyspnea on exertion that occurs after patient walks for approximately 10 minutes. She has had recent negative cardiac evaluation. She denies family history of lung disease. She has been employed with no exposure to industrial dusts. Patient does have environmental allergies. She denies having pets. After the last office visit patient has completed her chest x-ray that was essentially normal and her pulmonary function tests that showed mild restrictive defect with mild decrease in diffusion capacity. [facility] Medical History Anxiety H/O food poisoning Osteoporosis Arthritis Asthma COVID-19 vaccine series completed Screening for colon cancer Hypertension Surgical History History of cataract extraction H/O colonoscopy Family History Father Alzheimers disease Mother CHF (congestive heart failure) Stroke Hypertension Social History Housing: House Are you a primary healthcare marketer to a significant other at home: No Do you presently have visiting nurse or other home services: No Alcohol intake: current Alcohol intake frequency: 0-2 drinks per day Patient Tobacco Use Status: Never used Tobacco e-Cigarette/Vaping Use: Never Used Second Hand Smoke Exposure: No Advance Directives Date on File: 06/15/21 service: No 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al status: retired 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 Cognitive needs: No Hearing needs: No Vision needs: Yes (glasses) Review of Systems Const Denies daytime sleepiness, Denies excessive sweating, Denies fatigue, Denies fever(s), Denies lethargy, Denies malaise, Denies night sweats, Denies snoring and Denies weight loss Eyes Denies blurry vision and Denies itchy eyes ENT Denies nasal congestion, Denies post nasal drip, Denies sinus pain, Denies sinus pressure and Denies other ( Thrush) Card Denies chest pain, Denies pedal edema, Denies dyspnea, Reports dyspnea on exertion, Denies orthopnea and Denies paroxysmal nocturnal dyspnea Resp Denies cough, Denies hemoptysis, Denies excessive phlegm production, Denies dyspnea, Reports dyspnea on exertion, Denies snoring and Denies wheezing GI Denies abdominal pain and Denies heartburn Musc Denies myalgias, Denies arthralgias and Denies joint swelling Skin/Breast Denies rash Neuro Denies memory loss and Denies seizure-like activity Psych Denies abnormal sleep pattern, Denies anxiety and Denies memory loss Endo Denies excessive sweating, Denies fatigue and Denies heat intolerance Jluis/Lymph Denies easy bruising Aller/Immun Denies itchy eyes, Denies seasonal rhinorrhea and Denies wheezing Physical Exam Vital Signs: Last Vital Signs Pulse 92 11/09/24 10:46 BP 142/62 H 11/09/24 10:46 Pulse Ox 95 11/09/24 10:46 Oxygen Delivery Method Room Air 11/09/24 10:46 BMI result Body Mass Index 26.6 Const General: no acute distress and alert Nutritional Appearance: not obese Orientation/consciousness: Other orientation findings ( oriented) HEENT Head: Yes atraumatic Eyes General: appearance normal, both eyes and all related structures Sclerae: sclerae normal EOM: EOMs intact bilaterally Neck Neck: Yes supple Lymphatic: no lymphadenopathy noted Resp Effort & Inspection: normal respiratory effort and no use of accessory muscles Auscultation: clear to auscultation bilaterally Cardio Rate: regular rate Rhythm: regular rhythm Heart sounds: no gallops, no murmurs and no rubs Skin General skin exam: other ( warm) Extrem General: No clubbing, No cyanosis and No edema Assessment & Plan Assessment & Plan (1) Asthma: Code(s): J45.909 - Unspecified asthma, uncomplicated Category: Medical Plan: Appears to have reactive airway disease symptoms with possible allergic component. Will start on empiric Breo and reassess symptoms in several weeks. (2) Environmental allergies: Code(s): Z91.09 - Other allergy status, other than to drugs and biological substances Category: Medical Plan: Will obtain IgE level, CBC with differential, and RAST panel for further evaluation. Orders: Orders Resp Allergy Profile Region I Today J45.909 - Unspecified asthma, uncomplicated Complete Blood Count Auto Diff Today J45.909 - Unspecified asthma, uncomplicated Medications: New fluticasone furoate-vilanterol 200-25 mcg/dose (Breo Ellipta) 1 inh inhalation DAILY 1 ea 6RF J45.909 - Unspecified asthma, uncomplicated Coding Level of Care Code Est Pt Level 4 (94584) Diagnoses Asthma J45.909 Environmental allergies Z91.09
== END 2024-11-09 11:16 | disposition home or self-care (01) ==
LOC: HO.HPS 10:35
PROVIDERS: PCP Internal Medicine; Visit Provider Internal Medicine Pulmonary Disease
DX: J45.909 Unspecified asthma, uncomplicated (principal); Z91.09 Other allergy status, other than to drugs and biological substances
CPT/HCPCS: 99214

== ENCOUNTER → 2024-11-09 10:34 | Outpatient (BNVA) | payer MEDICARE, SELFPAY | PROVIDERS: PCP Internal Medicine; Visit Provider Internal Medicine Pulmonary Disease | DX: R06.09 Other forms of dyspnea (principal); J45.909 Unspecified asthma, uncomplicated; Z91.09 Other allergy status, other than to drugs and biological substances | CPT/HCPCS: 99212 ==

== ENCOUNTER 2024-11-10 08:26 | Outpatient (REF) | payer MEDICARE, SELFPAY ==
[2024-11-10 09:01] LABS: MANUAL DIFF FLAG NO
[2024-11-10 09:37] LABS: Basophils Absolute Auto 0.1 X10*3/uL (0.0-0.2); Basophils Percent Auto 0.6 % (0-2); Eosinophils Absolute Auto 0.4 X10*3/uL (0.0-0.4); Eosinophils Percent Auto 4.3 % (0-4); Hematocrit 42.3 % (37.0-47.0); Hemoglobin 13.7 g/dl (12.0-16.0); Imm Gran Abs Auto 0.03 X10*3/uL (0.00-0.03); Imm Gran Pct Auto 0.3 % (0.0-0.4); Lymphocytes Absolute Auto 2.3 X10*3/uL (1.2-4.9); Lymphocytes Percent Auto 24.4 % (20-40); Mean Corpuscular HGB Conc 32.4 g/dl (31.0-35.0); Mean Corpuscular Hemoglobin 29.8 pg (27.0-33.0); Mean Corpuscular Volume 92.2 fL (80.0-98.0); Mean Platelet Volume 10.5 fL (9.4-12.3); Monocytes Percent Auto 10.6 % (2-11); Neutrophils Absolute Auto 5.6 x10*3/uL (2.0-8.3); Neutrophils Percent Auto 59.8 % (45-73); Platelet Count 378 X10*3/uL (160-400); Red Blood Count 4.59 X10*6/uL (4.20-5.50); Red Cell Distribution Width 13.8 % (11.0-16.0); White Blood Count 9.5 X10*3/uL (4.8-10.8)
[2024-11-17 04:49] LABS: Class Alternaria alternata 0; Class Aspergillus fumigatus 0; Class Bermuda Grass 0/1; Class Birch 0; Class Cat Dander 2; Class Cladosporium herbarum 0; Class Cockroach 0; Class Common Ragweed 0; Class Cottonwood 0; Class Derm. pterony 0; Class Dermatophagoides farinae 0; Class Dog Dander 1; Class Elm 0; Class Maple Box Elder 0; Class Mountain Cedar 0; Class Mouse Urine Protein 0; Class Mugwort 0; Class Oak 0; Class Penicillium crysogenum 0; Class Rough Pigweed 0; Class Sheep Sorrel 0; Class Sycamore 0; Class Timothy Grass 2; Class Walnut Tree 0; Class White Ash 0; Class White Mulberry 0; D001 IgE D pteronyssinus <0.10 kU/L; D002 - IgE D farinae <0.10 kU/L; E001 - IgE Cat Dander 2.52 kU/L; E005 - IgE Dog Dander 0.37 kU/L; E072-IgE Mouse Urine <0.10 kU/L; G002 IgE Bermuda Grass 0.16 kU/L; G006 - IgE Timothy Grass 1.59 kU/L; I006-IgE Cockroach, German <0.10 kU/L; Immunoglobulin E 81 kU/L (<OR=114); M001 IgE Penicillium chrysogen <0.10 kU/L; M002 - IgE Cladosporium herbar <0.10 kU/L; M003 - IgE Aspergillus fumigat <0.10 kU/L; M006 - IgE Alternaria alternat <0.10 kU/L; T001 IgE Maple/Box Elder <0.10 kU/L; T003 IgE Common Silver Birch <0.10 kU/L; T006 - IgE Cedar, Mountain <0.10 kU/L; T007 - IgE Oak, White <0.10 kU/L; T008 IgE Elm, American <0.10 kU/L; T010 - IgE Walnut <0.10 kU/L; T011 - IgE Maple Leaf Sycamore <0.10 kU/L; T014 - IgE Cottonwood <0.10 kU/L; T015 - IgE Ash, White <0.10 kU/L; T070 - IgE White Mulberry <0.10 kU/L; W001 - IgE Ragweed, Short <0.10 kU/L; W006 - IgE Mugwort <0.10 kU/L; W014 IgE Pigweed, Common <0.10 kU/L; W018 IgE Sheep Sorrel <0.10 kU/L
== END 2024-11-10 08:27 | disposition home or self-care (01) ==
LOC: HO.LAB 08:26
PROVIDERS: Visit Provider Internal Medicine Pulmonary Disease
DX: J45.909 Unspecified asthma, uncomplicated (principal); Z91.09 Other allergy status, other than to drugs and biological substances
CPT/HCPCS: 36415; 82785; 85025; 86003

== ENCOUNTER 2024-12-11 10:27 | Outpatient (REF) | payer MEDICARE, SELFPAY | END 2024-12-11 10:28 | disposition home or self-care (01) | LOC: HO.MAMMO 10:27 | PROVIDERS: PCP Internal Medicine; Visit Provider Internal Medicine | DX: Z12.31 Encounter for screening mammogram for malignant neoplasm of breast (principal) | CPT/HCPCS: 77063; 77067 ==

== ENCOUNTER → 2024-12-11 10:45 | Outpatient (BNV) | payer MEDICARE, SELFPAY | PROVIDERS: PCP Internal Medicine; Visit Provider Internal Medicine | DX: Z12.31 Encounter for screening mammogram for malignant neoplasm of breast (principal) | CPT/HCPCS: 77063; 77067 ==

== ENCOUNTER 2025-01-23 13:45 | Outpatient (AMB) | payer MEDICARE, SELFPAY ==
[2025-01-23 13:49] VITALS: BP 140/72; PULSE 91; O2SAT 97; BMI 26.1
--- NOTE | 2025-01-23 13:49 | A.OFFVIS_ITS ---
Vital Signs 01/23/25 13:49 Height 5 ft 4 in Weight 152 lb BMI 26.1 BP 140/72 H Blood Pressure Location Rt brachial Position Sitting Pulse 91 Pulse Source Pulse Oximeter Pulse Oximetry (%) 97 Oxygen Delivery Method Room Air Intake Visit Reasons: Dyspnea Allergies Sulfa (Sulfonamide Antibiotics) [Sulfa (Sulfonamides)] Allergy (Mild, Verified 01/23/25 13:55) childhood allergy per patient-? seizure(was told by mother) HPI HPI Dyspnea: Details: 79-year-old lady, lifetime nonsmoker, with underlying history of asthma since 17 years of age controlled on albuterol MDI as needed, followed for environmental allergies and chronic cough/cough variant asthma. She has been tried on Breo with some improvement, however not complete control of her symptoms. Her immunologic workup shows significant allergic component to her symptoms. [facility] Medical History Anxiety H/O food poisoning Osteoporosis Arthritis Asthma COVID-19 vaccine series completed Screening for colon cancer Hypertension Surgical History History of cataract extraction H/O colonoscopy Family History Father Alzheimers disease Mother CHF (congestive heart failure) Stroke Hypertension Social History (Reviewed 10/03/24 @ 10:38 by Caty Wilkerson [facility]) Housing: House Are you a primary career manager to a significant other at home: No Do you presently have visiting nurse or other home services: No Alcohol intake: current Alcohol intake frequency: 0-2 drinks per day Patient Tobacco Use Status: Never used Tobacco e-Cigarette/Vaping Use: Never Used Second Hand Smoke Exposure: No Advance Directives Date on File: 06/15/21 service: No 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al status: retired 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 Cognitive needs: No Hearing needs: No Vision needs: Yes (glasses) Review of Systems Const Denies daytime sleepiness, Denies excessive sweating, Denies fatigue, Denies fever(s), Denies lethargy, Denies malaise, Denies night sweats, Denies snoring and Denies weight loss Eyes Denies blurry vision and Denies itchy eyes ENT Denies nasal congestion, Denies post nasal drip, Denies sinus pain, Denies sinus pressure and Denies other ( Thrush) Card Denies chest pain, Denies pedal edema, Denies dyspnea, Denies orthopnea and Denies paroxysmal nocturnal dyspnea Resp Denies cough, Denies hemoptysis, Denies excessive phlegm production, Denies dyspnea, Denies snoring and Denies wheezing GI Denies abdominal pain and Denies heartburn Musc Denies myalgias, Denies arthralgias and Denies joint swelling Skin/Breast Denies rash Neuro Denies memory loss and Denies seizure-like activity Psych Denies abnormal sleep pattern, Denies anxiety and Denies memory loss Endo Denies excessive sweating, Denies fatigue and Denies heat intolerance Jluis/Lymph Denies easy bruising Aller/Immun Denies itchy eyes, Denies seasonal rhinorrhea and Denies wheezing Physical Exam Vital Signs: Last Vital Signs Pulse 91 01/23/25 13:49 BP 140/72 H 01/23/25 13:49 Pulse Ox 97 01/23/25 13:49 Oxygen Delivery Method Room Air 01/23/25 13:49 BMI result Body Mass Index 26.1 Const General: no acute distress and alert Nutritional Appearance: not obese Orientation/consciousness: Other orientation findings ( oriented) HEENT Head: Yes atraumatic Eyes General: appearance normal, both eyes and all related structures Sclerae: sclerae normal EOM: EOMs intact bilaterally Neck Neck: Yes supple Lymphatic: no lymphadenopathy noted Resp Effort & Inspection: normal respiratory effort and no use of accessory muscles Auscultation: clear to auscultation bilaterally Cardio Rate: regular rate Rhythm: regular rhythm Heart sounds: no gallops, no murmurs and no rubs Skin General skin exam: other ( warm) Extrem General: No clubbing, No cyanosis and No edema Assessment & Plan Assessment & Plan (1) Cough variant asthma: Code(s): J45.991 - Cough variant asthma Category: Medical Plan: Suboptimal control on Breo and albuterol MDI. Expect to improve on Dupixent. Dupixent approval requested. (2) Environmental allergies: Code(s): Z91.09 - Other allergy status, other than to drugs and biological substances Category: Medical Plan: Results of immunologic workup reviewed, underlying significant environmental allergies likely as an etiology for underlying symptoms. Expect to improve on Dupixent. Coding Level of Care Code Est Pt Level 4 (29698) Diagnoses Cough variant asthma J45.991 Environmental allergies Z91.09
--- OUTSIDE RECORDS SUMMARY | 2025-01-23 15:37 | XMS_ITS | Patient Health Record ---
Author Organization [facility] Address [address] [place] [address] Care Team Providers Care Resilient Tile Installer Name Role Phone Kate DURON, Felipe Primary Care Provider Polo Nichols Unavailable [phone] Allergies Allergen (clinical drug ingredient) Drug/Non Drug [...] Problem Status W/U Status Risk Notes Problem [id number] Encounter for screening for malignant neoplasm of colon (Z12.11) Active confirmed Problem 08049402 Constipation, unspecified constipation type (K59.00) Active confirmed Problem Diverticulosis of colon (162693905) Diverticulosis of colon (K57.30) Active confirmed Plan Of Treatment Pending Test Test Name Order Date Pathology 10/14/2021 Future Test Test Name Order Date COLONOSCOPY 05/26/2021 Insurance Providers Payer Name Payer Address Payer Phone Subscriber Number Group Number Insured Name Patient Relationship to Insured Coverage Start Date Coverage End Date MEDICARE OF [place] [address] [place] [address] [phone] [id number] VLADISLAV HA Self - patient is the insured MEDEX ATTN CLAIMS [address] [place] [address] [id number] VLADISLAV HA Self - patient is the insured Medical (General) History Medical History History ICD Code Hypertension Asthma - mild intermittent Denies NM,DM,CVA,renal disease Urinary incontinence Negative colonoscopy approx 13 yrs ago w ith Dr. Wills Surgical History Surgery Date(Month/Year) Cataracts scheduled for 06/2021
== END 2025-01-23 14:12 | disposition home or self-care (01) ==
PROVIDERS: PCP Internal Medicine; Visit Provider Internal Medicine Pulmonary Disease
DX: J45.991 Cough variant asthma (principal); Z91.09 Other allergy status, other than to drugs and biological substances
CPT/HCPCS: 99214

== ENCOUNTER → 2025-01-23 13:45 | Outpatient (BNVA) | payer MEDICARE, SELFPAY | PROVIDERS: PCP Internal Medicine; Visit Provider Internal Medicine Pulmonary Disease | DX: J45.991 Cough variant asthma (principal); Z91.09 Other allergy status, other than to drugs and biological substances | CPT/HCPCS: 99212 ==

== ENCOUNTER 2025-02-01 10:43 | Outpatient (AMB) | payer MEDICARE, SELFPAY ==
--- OUTSIDE RECORDS SUMMARY | 2025-02-01 11:10 | XMS_ITS | Patient Health Record ---
Author Organization [facility] Address [address] [place] [address] Care Team Providers Care Wrapper Layer And Examiner Soft Work Name Role Phone Kate DURON, Felipe Primary Care Provider Polo Nichols Unavailable [phone] Allergies Allergen (clinical drug ingredient) Drug/Non Drug [...] Problem Status W/U Status Risk Notes Problem [id number] Encounter for screening for malignant neoplasm of colon (Z12.11) Active confirmed Problem 79617316 Constipation, unspecified constipation type (K59.00) Active confirmed Problem Diverticulosis of colon (465971922) Diverticulosis of colon (K57.30) Active confirmed Plan Of Treatment Pending Test Test Name Order Date Pathology 10/14/2021 Future Test Test Name Order Date COLONOSCOPY 05/26/2021 Insurance Providers Payer Name Payer Address Payer Phone Subscriber Number Group Number Insured Name Patient Relationship to Insured Coverage Start Date Coverage End Date MED[place]ARE OF [place] [address] [place] [address] [id number] VLADISLAV HA Self - patient is the insured MEDEX ATTN CLAIMS [address] [place] [address] [id number] VLADISLAV HA Self - patient is the insured Medical (General) History Medical History History ICD Code Hypertension Asthma - mild intermittent Denies NV,DM,CVA,renal disease Urinary incontinence Negative colonoscopy approx [address] w [address]. Wills Surgical History Surgery Date(Month/Year) Cataracts scheduled for 06/2021
[2025-02-01 11:16] VITALS: BP 142/76; PULSE 100; O2SAT 95
--- NOTE | 2025-02-01 11:16 | MHC.OFFVIS ---
Vital Signs 02/01/25 11:16 Height 5 ft 4 in BP 142/76 H Blood Pressure Location Rt brachial Position Sitting Pulse 100 Pulse Source Pulse Oximeter Pulse Oximetry (%) 95 Oxygen Delivery Method Room Air Intake Visit Reasons: Dupixent Teaching Dental Specialist Required: No Allergies Sulfa (Sulfonamide Antibiotics) (Sulfa (Sulfonamides)) Allergy (Mild, Verified 02/01/25 11:17) childhood allergy per patient-? seizure(was told by mother) Medication List - Last Reconciled 02/01/25 by Kathy Borjas LPN albuterol sulfate 90 mcg/actuation 2 puffs PO Q4-6H PRN 3 months ascorbic acid (vitamin C) (Vitamin C) 500 mg PO DAILY benzonatate 100 mg PO BID PRN 5 days cholecalciferol (vitamin D3) (Vitamin D3) 25 mcg PO DAILY dupilumab (Dupixent) 300 mg (2 mL) subcut Q2W 28 days fluticasone furoate-vilanterol 200-25 mcg/dose (Breo Ellipta) 1 inh inhalation DAILY hydrochlorothiazide 25 mg PO DAILY lisinopril 10 mg PO DAILY multivitamin 1 tab PO DAILY naproxen (Naprosyn) 500 mg PO BID PRN sertraline 25 mg PO DAILY HPI Comments Details: Karina and her partner Ed are here for a Dupixent teach Karina and Mitchel were educated on hand washing, injection preparation, administration, and disposal.? They were able to return demonstrate proper technique for hand washing, injection preparation, administration and disposal of needle and states they have no questions at this time. Medication Dupixent 300mg/2mL auto-injector (patient?s own meds) Loading dose of 600mg given by Karina and Ed in 2 SQ injections; injection #1 L thigh;? injection #2 R thigh Lot# [id number] expires 06/14/2026. Patient aware her next injection is in 15 days. Nurse visit only.? [facility] Medical History Anxiety H/O food poisoning Osteoporosis Arthritis Asthma COVID-19 vaccine series completed Screening for colon cancer Hypertension Surgical History History of cataract extraction H/O colonoscopy Family History Father Alzheimers disease Mother CHF (congestive heart failure) Stroke Hypertension Social History Housing: House Are you a primary gericare aide teacher to a significant other at home: No Do you presently have visiting nurse or other home services: No Alcohol intake: current Alcohol intake frequency: 0-2 drinks per day Patient Tobacco Use Status: Never used Tobacco e-Cigarette/Vaping Use: Never Used Second Hand Smoke Exposure: No Advance Directives Date on File: 06/15/21 service: No 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al status: retired 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
== END 2025-02-01 11:37 | disposition home or self-care (01) ==
LOC: HO.HPS 10:43
PROVIDERS: PCP Internal Medicine; Visit Provider Internal Medicine Pulmonary Disease
DX: J45.909 Unspecified asthma, uncomplicated (principal)

== ENCOUNTER → 2025-02-01 10:43 | Outpatient (BNVA) | payer MEDICARE, SELFPAY | PROVIDERS: PCP Internal Medicine; Visit Provider Internal Medicine Pulmonary Disease | DX: J45.909 Unspecified asthma, uncomplicated (principal) | CPT/HCPCS: 99211 ==

== ENCOUNTER 2025-03-18 14:01 | Outpatient (AMB) | payer MEDICARE, SELFPAY ==
--- OUTSIDE RECORDS SUMMARY | 2025-03-18 14:09 | XMS_ITS | Patient Health Record ---
Author Organization [facility] Address [address] [place] [address] Care Team Providers Care Tent Worker Name Role Phone Kate DURON, Felipe Primary Care Provider Polo Nichols Unavailable [phone] Allergies Allergen (clinical drug ingredient) Drug/Non Drug [...] Problem Status W/U Status Risk Notes Problem [id number] Encounter for screening for malignant neoplasm of colon (Z12.11) Active confirmed Problem 87214398 Constipation, unspecified constipation type (K59.00) Active confirmed Problem Diverticulosis of colon (949209238) Diverticulosis of colon (K57.30) Active confirmed Plan Of Treatment Pending Test Test Name Order Date Pathology 10/14/2021 Future Test Test Name Order Date COLONOSCOPY 05/26/2021 Insurance Providers Payer Name Payer Address Payer Phone Subscriber Number Group Number Insured Name Patient Relationship to Insured Coverage Start Date Coverage End Date MEDICARE OF [place] [address] [place] [address] [id number] VLADISLAV HA Self - patient is the insured MEDEX ATTN CLAIMS [address] [place] [address] [id number] VLADISLAV HA Self - patient is the insured Medical (General) History Medical History History ICD Code Hypertension Asthma - mild intermittent Denies NM,DM,CVA,renal disease Urinary incontinence Negative colonoscopy approx [address] w [address] Dr. Wills Surgical History Surgery Date(Month/Year) Cataracts scheduled for 06/2021
--- OUTSIDE RECORDS SUMMARY | 2025-03-18 14:09 | XMS_ITS | Clinical Summary ---
Author Organization [facility] Address [address] [place] [id number] Phone Care Team Providers Care Steel Floor Pan Placing Supervisor Name Role Phone Felipe Love MD Primary Care Provider [phone] Allergies Active Allergy Reactions Criticality Noted Date Comments Sulfa (Sulfonamide Antibiotics) 09/2020 Medications lisinopril (PRINIVIL,ZESTR IL) 5 MG tablet Take 5 mg by mouth daily. Active hydroCHLOROthia zide (HYDRODIURIL) 25 MG tablet Take 25 mg by mouth daily. Active alendronate (FOSAMAX) 5 MG tablet Take 5 mg by mouth daily before breakfast. Take in the morning with a full glass of water, on an empty stomach, and do not take anything else by mouth or lie down for the next 30 min. Active multivitamin-mi nerals-lutein (CENTRUM SILVER) Tab Take 1 tablet by mouth daily. Active ascorbic acid, vitamin C, (VITAMIN C) 250 mg Chew Take by mouth daily. Active calcium carbonate-vitam in D3 1,250 mg (500 mg elemental)-400 units per tablet Take 1 tablet by mouth daily. Active Active Problems No known active problems Immunizations Immunization Administration Dates Next Due COVID-19 (Pre-06/06) Moderna Vaccine, mRNA, PF 10/07/2020 Influenza High-Dose Trivalen t Preservative Free IM 06/06/2019,06/07/2018,05/14/2015 Influenza Quadrivalent Preservative Free IM 04/2019 Influenza Trivalent Adjuvant ed Preservative free IM 05/24/2017,05/18/2016 Pneumococcal conjugate PCV13 05/14/2015 Pneumococcal polysaccharide PPSV23 05/18/2016 Zoster recombinant 07/05/2018 Social History Tobacco Use Types Packs/Day Years Used Date Smoking Tobacco: Never Smokeless Tobacco: Never Tobacco Cessation:Counseling Given: Yes Education Answer Date Recorded Are you interested in more education? Not on enzo e 12/11/2022 Are you concerned about learning? Not on file 12/11/2022 No 12/11/2022 No 12/11/2022 Digital Access Answer Date Recorded No 01/08/2023 No 01/08/2023 No 01/08/2023 Reliable internet access at home? Not on file 01/08/2023 Device with a working camera? Not on file Comments Unknown Sex and Gender Information Value Date Recorded Sex Assigned at Not on file Legal Sex Female 10:07 AM EDT Gender Identity Not on file Sexual Orientation Not on file Last Filed Vital Signs Vital Sign Reading Time Taken Comments Blood Pressure 160/75 07/21/2021 6:27 PM EST Pulse 111 07/21/2021 6:27 PM EST Temperature 37.5 C (99.5 F) 07/21/2021 6:27 PM EST Respiratory Rate 22 07/21/2021 6:27 PM EST Oxygen Saturation 94% 07/21/2021 6:27 PM EST Inhaled Oxygen Concentration - - Weight 66.7 kg (147 lb) 07/21/2021 6:27 PM EST Height 160 cm (5' 3 ) 07/21/2021 6:27 PM EST Body Mass Index 26.04 07/21/2021 6:27 PM EST Plan of Treatment Health Maintenance Due Date Last Done Comments Adult Td,Tdap Booster 1946 CREATININE LEVEL 1946 LIPID PANEL 1946 POTASSIUM LEVEL 1946 DEPRESSION SCREENING 1958 HEPATITIS C SCREENING 1964 OSTEOPOROSIS SCREENING INITI AL (ONE-TIME) 12/14/2011 ZOSTER VACCINES (2 of 2) 08/30/2018 07/05/2018 RSV VACCINE (1 - 1-dose 75+ series) 2021 COVID-19 VACCINE (3 - 2023-2 5 season) 2024 11/04/2020, 10/07/2020 PNEUMOCOCCAL VACCINES (50+ years) Completed 05/18/2016, 05/14/2015 SMOKING STATUS SCREENING (On ce After 26 Yrs) Completed 07/21/2021 HEPATITIS A VACCINES Aged Out No long er eligible based on patient's age to complete this topic HIB VACCINES Aged Out No longer eligi ble based on patient's age to complete this topic MENINGOCOCCAL VACCINES (ACWY) Aged Out No longer eligible based on patient's age to complete this topic MENINGOCOCCAL VACCINES (B) Aged Out N o longer eligible based on patient's age to complete this topic Medical Devices Not on file Insurance MEDICARE PART A & B [employer] MEDEX SUPPLEMENT MEDICARE PART A & B MEDICARE PART A & B MEDICARE PART A & B MEDICARE PART A & B MEDICARE PART A & B MEDICARE PART A & B MEDICARE PART A & B MEDICARE PART A & B Care Teams Steel Floor Pan Placing Supervisor Relationship Specialty Start Date End Date Felipe Love MD [address] [place] [address] Dr Clark AlyssaROBSON [id number] PCP - General Internal Medicine 12/14/20 Additional Source Comments The information contained in this document represents components of the legal health record. It is not the complete legal health record.[facility]
[2025-03-18 14:10] VITALS: BP 138/58; PULSE 70; O2SAT 98; BMI 26.1
--- NOTE | 2025-03-18 14:10 | MHC.OFFVIS ---
Vital Signs 03/18/25 14:10 Height 5 ft 4 in Weight 152 lb BMI 26.1 BP 138/58 L Blood Pressure Location Rt brachial Position Sitting Pulse 70 Pulse Source Pulse Oximeter Pulse Oximetry (%) 98 Oxygen Delivery Method Room Air Intake Visit Reasons: Dyspnea Allergies Sulfa (Sulfonamide Antibiotics) (Sulfa (Sulfonamides)) Allergy (Mild, Verified 02/01/25 11:17) childhood allergy per patient-? seizure(was told by mother) HPI HPI Dyspnea: Details: 79-year-old lady, lifetime nonsmoker, with underlying history of asthma since 17 years of age controlled on albuterol MDI as needed, followed for environmental allergies and chronic cough/cough variant asthma. She has been tried on Breo with some improvement, however not complete control of her symptoms. After the last office visit patient was started on Dupixent with significantly improved symptom control. [facility] Medical History Anxiety H/O food poisoning Osteoporosis Arthritis Asthma COVID-19 vaccine series completed Screening for colon cancer Hypertension Surgical History History of cataract extraction H/O colonoscopy Family History Father Alzheimers disease Mother CHF (congestive heart failure) Stroke Hypertension Social History Housing: House Are you a primary plant health care technician to a significant other at home: No Do you presently have visiting nurse or other home services: No Alcohol intake: current Alcohol intake frequency: 0-2 drinks per day Patient Tobacco Use Status: Never used Tobacco e-Cigarette/Vaping Use: Never Used Second Hand Smoke Exposure: No Advance Directives Date on File: 06/15/21 service: No 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al status: retired 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 Cognitive needs: No Hearing needs: No Vision needs: Yes (glasses) Review of Systems Const Denies daytime sleepiness, Denies excessive sweating, Denies fatigue, Denies fever(s), Denies lethargy, Denies malaise, Denies night sweats, Denies snoring and Denies weight loss Eyes Denies blurry vision and Denies itchy eyes ENT Denies nasal congestion, Denies post nasal drip, Denies sinus pain, Denies sinus pressure and Denies other ( Thrush) Card Denies chest pain, Denies pedal edema, Denies dyspnea, Denies orthopnea and Denies paroxysmal nocturnal dyspnea Resp Denies cough, Denies hemoptysis, Denies excessive phlegm production, Denies dyspnea, Denies snoring and Denies wheezing GI Denies abdominal pain and Denies heartburn Musc Denies myalgias, Denies arthralgias and Denies joint swelling Skin/Breast Denies rash Neuro Denies memory loss and Denies seizure-like activity Psych Denies abnormal sleep pattern, Denies anxiety and Denies memory loss Endo Denies excessive sweating, Denies fatigue and Denies heat intolerance Jluis/Lymph Denies easy bruising Aller/Immun Denies itchy eyes, Denies seasonal rhinorrhea and Denies wheezing Physical Exam Vital Signs: Last Vital Signs Pulse 70 03/18/25 14:10 BP 138/58 L 03/18/25 14:10 Pulse Ox 98 03/18/25 14:10 Oxygen Delivery Method Room Air 03/18/25 14:10 BMI result Body Mass Index 26.1 Const General: no acute distress and alert Nutritional Appearance: not obese Orientation/consciousness: Other orientation findings ( oriented) HEENT Head: Yes atraumatic Eyes General: appearance normal, both eyes and all related structures Sclerae: sclerae normal EOM: EOMs intact bilaterally Neck Neck: Yes supple Lymphatic: no lymphadenopathy noted Resp Effort & Inspection: normal respiratory effort and no use of accessory muscles Auscultation: clear to auscultation bilaterally Cardio Rate: regular rate Rhythm: regular rhythm Heart sounds: no gallops, no murmurs and no rubs Skin General skin exam: other ( warm) Extrem General: No clubbing, No cyanosis and No edema Assessment & Plan Assessment & Plan (1) Cough variant asthma: Code(s): J45.991 - Cough variant asthma Category: Medical Plan: Well controlled on Breo, albuterol MDI, and Dupixent. Continue current regimen. (2) Environmental allergies: Code(s): Z91.09 - Other allergy status, other than to drugs and biological substances Category: Medical Plan: Well controlled on Dupixent. Continue current regimen. Coding Level of Care Code Est Pt Level 4 (90171) Diagnoses Cough variant asthma J45.991 Environmental allergies Z91.09
== END 2025-03-18 14:23 | disposition home or self-care (01) ==
LOC: HO.HPS 14:02
PROVIDERS: PCP Internal Medicine; Visit Provider Internal Medicine Pulmonary Disease
DX: J45.991 Cough variant asthma (principal); Z91.09 Other allergy status, other than to drugs and biological substances
CPT/HCPCS: 99214

== ENCOUNTER → 2025-03-18 14:01 | Outpatient (BNVA) | payer MEDICARE, SELFPAY | PROVIDERS: PCP Internal Medicine; Visit Provider Internal Medicine Pulmonary Disease | DX: J45.991 Cough variant asthma (principal); Z91.09 Other allergy status, other than to drugs and biological substances | CPT/HCPCS: 99212 ==

== ENCOUNTER 2025-04-25 10:37 | Outpatient (AMB) | payer MEDICARE, SELFPAY ==
--- NOTE | 2025-04-25 10:44 | MHC.PC.OV ---
Vital Signs 04/25/25 10:46 Height 5 ft 4 in Weight 153 lb 2 oz BMI 26.3 BP 146/62 H Blood Pressure Location Lt brachial Position Sitting Respiration 18 Pulse 88 Pulse Source Pulse Oximeter Temp 96.4 F L Temp Source Temporal Artery Scan Pulse Oximetry (%) 98 Oxygen Delivery Method Room Air Intake Visit Reasons: Left leg swelling Reel Hooker Required: No Accompanied by: Self / Same As Patient Allergies Sulfa (Sulfonamide Antibiotics) (Sulfa (Sulfonamides)) Allergy (Mild, Verified 04/25/25 11:01) childhood allergy per patient-? seizure(was told by mother) Medication List - Last Reconciled 04/25/25 by SAMI Reich albuterol sulfate 90 mcg/actuation 2 puffs PO Q4-6H PRN 3 months ascorbic acid (vitamin C) (Vitamin C) 500 mg PO DAILY cholecalciferol (vitamin D3) (Vitamin D3) 25 mcg PO DAILY dupilumab (Dupixent) 300 mg (2 mL) subcut Q2W 28 days hydrochlorothiazide 25 mg PO DAILY lisinopril 10 mg PO DAILY multivitamin 1 tab PO DAILY naproxen (Naprosyn) 500 mg PO BID PRN Tobacco use date assessed: 04/25/25 Fall risk assessment: No Falls in past year Last assessed Fall Risk: 04/25/25 Dental Screening Dental Screen Date: 04/25/25 Did you have a dental visit in the last 12 months?: Yes Did you have a dental problem in the last 6 months where you did not have access to dental care?: No Was dental information given to patient?: Patient has dentist HPI Left leg swelling HPI Details The patient is a 79-year-old female presenting with swelling in the left leg. The swelling began approximately three weeks ago and was initially thought to be due to a pulled muscle. The swelling is primarily located at the ankle, accompanied by warmth, but no pain is reported. The patient has a history of a blood clot during , which was painful and caused significant swelling, but the current swelling does not cause pain or significant discomfort. There is a family history of circulatory problems on the maternal side, including the patient's mother and uncles. The patient also has a history of asthma, for which she takes medication, and reports no new respiratory symptoms. [facility] Medical History Anxiety H/O food poisoning Osteoporosis Arthritis Asthma COVID-19 vaccine series completed Screening for colon cancer Hypertension Surgical History History of cataract extraction H/O colonoscopy Family History Father Alzheimers disease Mother CHF (congestive heart failure) Stroke Hypertension Social History Housing: House Are you a primary resident care supervisor to a significant other at home: No Do you presently have visiting nurse or other home services: No Alcohol intake: current Alcohol intake frequency: 0-2 drinks per day Patient Tobacco Use Status: Never used Tobacco e-Cigarette/Vaping Use: Never Used Second Hand Smoke Exposure: No Advance Directives Date on File: 06/15/21 service: No 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al status: retired 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 1. Little interest or pleasure in doing things: more than half the days 2. Feeling down, depressed, or hopeless: not at all 3. Trouble falling or staying asleep, or sleeping too much: not at all 4. Feeling tired or having little energy: several days 5. Poor appetite or overeating: not at all 6. Feeling bad about yourself - or that you are a failure or have let yourself or your family down: not at all 7. Trouble concentrating on things, such as reading the newspaper or watching television: not at all 8. Moving or speaking so slowly that other people could have noticed. Or the opposite - being so fidgety or restless that you have been moving around a lot more than usual: not at all 9. Thoughts that you would be better off or of hurting yourself in some way: not at all Total score: 3 Depression Screening Interpretation: Negative Depression Screening Done: Yes Source: Developed by Drs. Polo Mercedes, Cynthia Lowe, Philippe Barth and colleagues, with an educational noe from [employer]. Thrive Questionnaire Date Thrive assessed: 04/25/25 I am a: Patient What is your living situation today?: I have a steady place to live Within the past 12 months, did the food you bought not last and you didn't have the money to get more?: Never true Within the past 12 months, did you worry whether your food would run out before you got money to buy more?: Never true Do you have trouble paying for medicines?: No Do you have trouble getting transportation to medical appointments?: No Do you have trouble paying your heating and electricity bill?: No Do you have trouble taking care of your child, family member or friend?: No Do you have trouble with day-to-day activities such as bathing, preparing meals, shopping, managing finances, etc.?: No Are you currently unemployed and looking for a job?: No Are you interested in more education?: No Please select the resources that you would like help with: None Currently or been in a relationship where the following occur: I choose not to answer THRIVE Score: 0 AUDIT C Alcohol Use Questionnaire (AUDIT-C) 1. How often do you have a drink containing alcohol?: 2-4 times a month 2. How many drinks containing alcohol do you have on a typical day when you are drinking?: 1 or 2 3. How often do you have six or more drinks on one occasion?: Never Total Score: 2 MARJORIE-7 AMB Questionnaire MARJORIE-7 Date MARJORIE - 7 assessed: 04/25/25 Feeling nervous, anxious, or on edge: 1 = Several days Not being able to stop or control worryin = Several days Worrying too much about different things: 1 = Several days Trouble relaxin = Not at all Being so restless that it is hard to sit still: 0 = Not at all Becoming easily annoyed or irritable: 0 = Not at all Feeling afraid as if something awful might happen: 0 = Not at all Total MARJORIE-7 score (0-4 normal; 5-9 mild; 10-14 moderate; 15-21 severe): 3 Source: Developed by Drs. Polo Mercedes, Cynthia Lowe, Philippe Barth and colleagues, with an educational noe from [employer]. Review of Systems Const Denies body aches, Denies chills, Denies fever(s), Denies headache(s) and Denies poor appetite Eyes Reports no additional complaints ENT Denies dysphagia, Denies dizziness, Denies headache(s) and Denies odynophagia Card Denies chest pain, Denies syncope, Denies edema, Denies irregular heart rhythm, Reports leg edema (left leg), Denies lightheadedness and Denies dyspnea Resp Denies cough and Denies dyspnea GI Denies abdominal pain, Denies constipation, Denies dysphagia, Denies diarrhea, Denies nausea, Denies odynophagia and Denies vomiting Reports no additional complaints Musc Reports no additional complaints and Denies abnormal gait Skin/Breast Reports system reviewed and no additional complaints, except as documented Neuro Denies abnormal gait, Denies dizziness, Denies syncope and Denies headache(s) Psych Reports no additional complaints Physical exam (Primary Care) Vital Signs: Last Vital Signs Temp 96.4 F L 04/25/25 10:46 Pulse 88 04/25/25 10:46 Resp 18 04/25/25 10:46 BP 146/62 H 04/25/25 10:46 Pulse Ox 98 04/25/25 10:46 Oxygen Delivery Method Room Air 04/25/25 10:46 BMI result Body Mass Index 26.3 Tobacco/Smoking Status: Tobacco use Status Tobacco use date assessed 04/25/25 04/25/25 10:55 Patient Tobacco Use Status Never used Tobacco 04/25/25 10:46 e-Cigarette/Vaping Use Never Used 04/25/25 10:46 PHQ-9: PHQ-9 Score PHQ-9: Total score 3 04/25/25 11:13 Depression Screening Interpretation: Negative Thrive Assessment: Date of Thrive Assessment Date Thrive assessed 04/25/25 04/25/25 10:46 Currently or been in a relationship where the following occur: I choose not to answer Const General: cooperative, healthy appearing, comfortable and no acute distress Orientation/consciousness: patient oriented x3 HENMT Head: Yes normocephalic Ears: hearing grossly normal bilaterally General nose exam: Normal external nose present Eyes General: appearance normal, both eyes and all related structures Conjunctivae: conjunctivae normal Neck Neck: Yes full ROM and Yes no lymphadenopathy Resp Effort & Inspection: normal respiratory effort Auscultation: clear to auscultation bilaterally, no crackles, no rales, no rhonchi and no wheezes Cardio Rate: regular rate Rhythm: regular rhythm GI Palpation (GI): Soft to palpation and nontender Auscultation: normal bowel sounds Skin General skin exam: no rashes or lesions noted Neuro General: patient oriented x3 Gait exam (Neuro): Normal gait present Extrem General: Yes normal to inspection and Yes full ROM Right upper extremity: full ROM Left upper extremity: full ROM Right lower extremity: full ROM; no edema Left lower extremity: full ROM and lower leg Details: non-pitting edema Details: 3+ and warmth; no erythema and no tenderness Psych Affect: normal affect Attitude: cooperative Insight: Good insight present (Psych) Judgement: Good judgement present (Psych) Coding Level of Care Code Est Pt Level 3 (63154) Diagnoses Left leg swelling M79.89 Time Spent (min) 34 Assessment & Plan Assessment & Plan (1) Left leg swelling: Code(s): M79.89 - Other specified soft tissue disorders Category: Medical Plan: Patient came in with left leg swelling, denies pain, no discoloration noted, denies sob. Warm to touch on exam. +pedal pulse. Venous doppler ordered stat. Orders: Orders US venous duplex LE LT Today M79.89 - Other specified soft tissue disorders, R23.8 - Other skin changes, Z86.718 - Personal history of other venous thrombosis and embolism Medications: New apixaban (Eliquis) 5 mg PO BID 180 tabs 3RF 90 days Discontinued naproxen (Naprosyn) Discontinued Reason: Doctor's Order 500 mg PO BID PRN 60 tabs 3RF pain
[2025-04-25 10:46] VITALS: BP 146/62; PULSE 88; RESP 18; TEMP 35.8; O2SAT 98; BMI 26.3
== END 2025-04-25 12:23 | disposition home or self-care (01) ==
LOC: HO.HMCH 10:38
PROVIDERS: PCP Internal Medicine
DX: M79.89 Other specified soft tissue disorders (principal)

== ENCOUNTER → 2025-04-25 10:37 | Outpatient (BNVA) | payer MEDICARE, SELFPAY | PROVIDERS: PCP Internal Medicine | DX: R60.0 Localized edema (principal) | CPT/HCPCS: 99212 ==

== ENCOUNTER 2025-04-25 13:23 | Outpatient (REF) | payer MEDICARE, SELFPAY ==
--- NOTE | ~2025-04-25 | US_ITS ---
EXAMINATION: US TRIPLEX LOWER EXTREMITY, LEFT CLINICAL INFORMATION: Pain and swelling/edema, left lower extremity. COMPARISON: None available. TECHNIQUE: Color-flow triplex imaging with spectral analysis and compression Doppler were performed on the left lower extremity. FINDINGS: There is no compression, augmentation or respiratory variation from the left posterior tibialis vein to the left common femoral vein. There is no compressibility in the great saphenous vein. There is no Diaz's cyst. US/US venous duplex LE LT IMPRESSION: Acute occlusive thrombus extending from the popliteal vein to the common femoral vein and into the great saphenous vein. Positive DVT, left lower extremity. Preliminary report provided to the nurse practitioner Lloyd Martines by the lead technologist in cytogenetics at 1:58 PM on April 25, 2025. Electronically signed by: Daniel Toth MD 04/25/2025 02:27 PM EDT
--- OUTSIDE RECORDS SUMMARY | 2025-04-25 17:22 | XMS_ITS | Patient Health Record ---
Author Organization [facility] Address [address] [place] [address] Care Team Providers Care Manager Athletics Name Role Phone Kate DURON, Felpie Primary Care Provider Polo Nichols Unavailable [phone] Allergies Allergen (clinical drug ingredient) Drug/Non Drug [...] Problem Status W/U Status Risk Notes Problem 343038511 Encounter for screening for malignant neoplasm of colon (Z12.11) Active confirmed Problem 49270551 Constipation, unspecified constipation type (K59.00) Active confirmed Problem Diverticulosis of colon (806203085) Diverticulosis of colon (K57.30) Active confirmed Plan Of Treatment Pending Test Test Name Order Date Pathology 10/14/2021 Future Test Test Name Order Date COLONOSCOPY 05/26/2021 Insurance Providers Payer Name Payer Address Payer Phone Subscriber Number Group Number Insured Name Patient Relationship to Insured Coverage Start Date Coverage End Date MEDICARE OF [place] [address] [place] [address] [id number] VLADISLAV HA Self - patient is the insured [employer] ATT[employer] CLAIMS [address] [place] [phone] [id number] VLADISLAV HA Self - patient is the insured Medical (General) History Medical History History ICD Code Hypertension Asthma - mild intermittent Denies LA,DM,CVA,renal disease Urinary incontinence Negative colonoscopy approx 13 yrs ago w ith Dr. Wills Surgical History Surgery Date(Month/Year) Cataracts scheduled for 06/2021
--- OUTSIDE RECORDS SUMMARY | 2025-04-25 17:22 | XMS_ITS | Clinical Summary ---
Author Organization [facility] Address [address] [place] [address] Phone Care Team Providers Care Motion Study Technician Name Role Phone Felipe Love MD Primary Care Provider [phone] Allergies Active Allergy Reactions Criticality Noted Date [...] 1958 HEPATITIS C SCREENING 1964 OSTEOPOROSIS SCREENING INITIAL (ONE-TIME) 12/14/2011 ZOSTER VACCINES (2 of 2) 08/30/2018 07/05/2018 RSV VACCINE (1 - 1-dose 75+ series) 2021 INFLUENZA VACCINE (#1) 2025 , 04/27/2020, 06/06/2019, Additional history exists COVID-19 VACCINE (3 - 2024- season) 2025 11/04/2020, 10/07/2020 PNEUMOCOCCAL VACCINES (50+ years) Completed 05/18/2016, 05/14/2015 SMOKING STATUS SCREENING (Once After 26 Yrs) Completed 07/21/2021 HEPATITIS A [...] file Insurance MEDICARE PART A & B [facility] MEDEX SUPPLEMENT MEDICARE PART A & B MEDICARE PART A & B MEDICARE PART A & B MEDICARE PART A & B MEDICARE PART A & B MEDICARE PART A & B MEDICARE PART A & B MEDICARE PART A & B Care Teams Motion Study Technician Relationship Specialty Start Date End Date Felipe Love MD [address] [place] [address] [place] [id number] PCP - General Internal Medicine 12/14/20 Additional Source Comments The information contained in this document represents components of the legal health record. It is not the complete legal health record.[facility]
== END 2025-04-25 13:24 | disposition home or self-care (01) ==
LOC: HO.HMGCX 13:23
PROVIDERS: PCP Internal Medicine
DX: M79.89 Other specified soft tissue disorders (principal); R23.8 Other skin changes; Z86.718 Personal history of other venous thrombosis and embolism
CPT/HCPCS: 93971

== ENCOUNTER → 2025-04-25 13:26 | Outpatient (BNV) | payer MEDICARE, SELFPAY | PROVIDERS: PCP Internal Medicine; Visit Provider Radiology Diagnostic Radiology | DX: I82.492 Acute embolism and thrombosis of other specified deep vein of left lower extremity (principal) | CPT/HCPCS: 93971 ==

== ENCOUNTER 2025-05-23 08:33 | Outpatient (REF) | payer MEDICARE, SELFPAY ==
--- NOTE | ~2025-05-23 | MM_ITS ---
EXAMINATION: DXA BONE DENSITY AXIAL HISTORY: MENOPAUSAL STATE TECHNIQUE: Scytl Dual energy absorptiometry (DEXA) of the lumbar spine, total left hip, and femoral neck was performed. COMPARISON: Comparison is made with the prior examination dated 12/02/2022. FINDINGS: The bone mineral density of the lumbar spine is 0.901 g/cm2, corresponding to a T-score of -2.2, and a Z-score of -0.5. This is indicative of osteopenia. This represents a BMD change of 8.9% compared to the prior exam. This is statistically significant. The bone mineral density of the left total hip is 0.863 g/cm2, corresponding to a T-score of -1.1, and a Z-score of 0.7. This is indicative of osteopenia. This represents a BMD change of -0.3% compared to the prior exam. This is not statistically significant. The bone mineral density of the left femoral neck is 0.753 g/cm2, corresponding to a T-score of -2.1, and a Z-score of 0.0. This is indicative of osteopenia. This represents a BMD change of 1.5% compared to the prior exam. FRACTURE RISK: The FRAX index suggests a ten year probability of major osteoporotic fracture of 15.4%, and of hip fracture 4.5%. MM/XR DEXA axial skeleton IMPRESSION: Based on bone mineral density, and according to World Health Organization (WHO) criteria, the diagnosis is consistent with osteopenia. Statistically, 68% of repeat scans fall within 1 SD (+/- 0.010 g/cm2 for AP spine L1-L4) and 1 SD (+/- 0.012 g/cm2 for femur total) FRAX is a trademark of the [employer] [place] [facility] Met[employer], a World Health Organization (WHO) Collaborating Center. Electronically signed by: Polo Galvan MD 05/23/2025 09:34 AM EDT
== END 2025-05-23 08:34 | disposition home or self-care (01) ==
LOC: HO.MAMMO 08:33
PROVIDERS: PCP Internal Medicine; Visit Provider Nurse Practitioner Adult Health
DX: Z13.820 Encounter for screening for osteoporosis (principal); Z78.0 Asymptomatic menopausal state
CPT/HCPCS: 77080

== ENCOUNTER → 2025-05-23 08:45 | Outpatient (BNV) | payer MEDICARE, SELFPAY | PROVIDERS: PCP Internal Medicine; Visit Provider Radiology Diagnostic Radiology | DX: E28.39 Other primary ovarian failure (principal) | CPT/HCPCS: 77080 ==

== ENCOUNTER → 2025-05-31 14:47 | Outpatient (BNV) | payer MEDICARE, SELFPAY | PROVIDERS: PCP Internal Medicine; Visit Provider Internal Medicine | DX: I82.432 Acute embolism and thrombosis of left popliteal vein (principal); Z79.01 Long term (current) use of anticoagulants; Z83.2 Family history of diseases of the blood and blood-forming organs and certain disorders involving the immune mechanism | CPT/HCPCS: 99204; G2211 ==

== ENCOUNTER 2025-06-19 08:12 | Outpatient (AMB) | payer MEDICARE, SELFPAY ==
[2025-06-19 08:15] VITALS: BP 168/82; PULSE 79; O2SAT 98; BMI 26.7
--- NOTE | 2025-06-19 08:15 | MHC.PC.OV ---
Vital Signs 06/19/25 08:15 Height 5 ft 3 in Weight 151 lb BMI 26.7 BP 168/82 H Blood Pressure Location Lt brachial Position Sitting Pulse 79 Pulse Source Pulse Oximeter Pulse Oximetry (%) 98 Oxygen Delivery Method Room Air Intake Visit Reasons: regular check up Aircraft Communicator Required: No Accompanied by: Self / Same As Patient Allergies Sulfa (Sulfonamide Antibiotics) (Sulfa (Sulfonamides)) Allergy (Mild, Verified 06/19/25 08:26) childhood allergy per patient-? seizure(was told by mother) Medication List - Last Reconciled 06/19/25 by Christy Zafar MD albuterol sulfate 90 mcg/actuation 2 puffs PO Q4-6H PRN 3 months apixaban (Eliquis) 5 mg PO BID 90 days ascorbic acid (vitamin C) (Vitamin C) 500 mg PO DAILY cholecalciferol (vitamin D3) (Vitamin D3) 25 mcg PO DAILY dupilumab (Dupixent) 300 mg (2 mL) subcut Q2W 28 days hydrochlorothiazide 25 mg PO DAILY lisinopril 10 mg PO DAILY multivitamin 1 tab PO DAILY Tobacco use date assessed: 04/25/25 Fall risk assessment: No Falls in past year Last assessed Fall Risk: 06/19/25 Dental Screening Dental Screen Date: 04/25/25 HPI HPI Comments History of Present Illness Details The patient is a 79-year-old female presenting for a transfer patient from [facility] . She has a history of hypertension, for which she takes hydrochlorothiazide 25 mg and lisinopril 10 mg, although she did not take them today. She reports that her blood pressure is always elevated in the office but is typically in the 120s over high 70s to low 80s at home. The patient has a history of recurrent deep vein thrombosis (DVT), with one event at age 38 and a second unprovoked event in April. Due to this history and a family history of DVTs, her craft center director has recommended indefinite anticoagulation with Eliquis. She is scheduled for a follow-up with hematology in six months, in August. She does have impaired glucose tolerance with fasting blood glucose of over 126 in the past and an A1c of 6.8% last year which was repeated today and was 6.3%. She is aware she has to follow a low-carbohydrate diet. Labs will be order to rule out diabetes. She also has an elevated TSH from last year which will be repeated. Denies any polyuria, polydipsia or unintentional weight loss. Review of past labs from August 2023 revealed a fasting glucose of 135 mg/dL and an HbA1c of 6.8%, which meets the diagnostic criteria for diabetes mellitus, though the patient reports she was never informed of this diagnosis. The same labs showed evidence of chronic kidney disease stage 3, elevated cholesterol, and a TSH of 4.8. Past medical history is also significant for osteopenia, diagnosed on a recent bone density scan, for which she takes calcium and vitamin D. She takes Dupixent every two weeks for allergies to cats and dogs. Surgical history includes cataract surgery. Her health screenings are up to date, including a mammogram and a colonoscopy in 2021. Family history is notable for a father with Alzheimer's disease and a mother with congestive heart failure, high blood pressure, and a stroke. The patient has never smoked and drinks wine a few times a week. [facility] Medical History (Updated 06/19/25 @ 10:07 by Christy Zafar MD) Anxiety H/O food poisoning Osteoporosis Arthritis Asthma COVID-19 vaccine series completed Screening for colon cancer Hypertension Surgical History History of cataract extraction H/O colonoscopy Family History Father Alzheimers disease Mother CHF (congestive heart failure) Hypertension Stroke Maternal Uncle H/O vein stripping Maternal Uncle H/O vein stripping Maternal Uncle H/O vein stripping Social History (Updated 06/19/25 @ 08:34 by Christy Zafar MD) Household Members: None Housing: House Are you a primary property caretaker to a significant other at home: No Do you presently have visiting nurse or other home services: No Alcohol intake: current Alcohol intake frequency: a few times a week Alcohol type: wine Patient Tobacco Use Status: Never used Tobacco Tobacco use type: Cigarette e-Cigarette/Vaping Use: Never Used Second Hand Smoke Exposure: No Advance Directives Date on File: 06/15/21 service: No 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al status: retired 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 1. Little interest or pleasure in doing things: more than half the days 2. Feeling down, depressed, or hopeless: not at all 3. Trouble falling or staying asleep, or sleeping too much: not at all 4. Feeling tired or having little energy: several days 5. Poor appetite or overeating: not at all 6. Feeling bad about yourself - or that you are a failure or have let yourself or your family down: not at all 7. Trouble concentrating on things, such as reading the newspaper or watching television: not at all 8. Moving or speaking so slowly that other people could have noticed. Or the opposite - being so fidgety or restless that you have been moving around a lot more than usual: not at all 9. Thoughts that you would be better off or of hurting yourself in some way: not at all Total score: 3 Depression Screening Interpretation: Negative Depression Screening Done: Yes 69537 - PHQ-9 Billing: Yes Source: Developed by Drs. Polo Mercedes, Cynthia Lowe, Philippe Barth and colleagues, with an educational noe from [employer]. Thrive Questionnaire Date Thrive assessed: 04/25/25 I am a: Patient What is your living situation today?: I have a steady place to live Within the past 12 months, did the food you bought not last and you didn't have the money to get more?: Never true Within the past 12 months, did you worry whether your food would run out before you got money to buy more?: Never true Do you have trouble paying for medicines?: No Do you have trouble getting transportation to medical appointments?: No Do you have trouble paying your heating and electricity bill?: No Do you have trouble taking care of your child, family member or friend?: No Do you have trouble with day-to-day activities such as bathing, preparing meals, shopping, managing finances, etc.?: No Are you currently unemployed and looking for a job?: No Are you interested in more education?: No Please select the resources that you would like help with: None Currently or been in a relationship where the following occur: I choose not to answer THRIVE Score: 0 AUDIT C Alcohol Use Questionnaire (AUDIT-C) 1. How often do you have a drink containing alcohol?: 2-4 times a month 2. How many drinks containing alcohol do you have on a typical day when you are drinking?: 1 or 2 3. How often do you have six or more drinks on one occasion?: Never Total Score: 2 Score Reviewed/Action Taken: No MARJORIE-7 AMB Questionnaire MARJORIE-7 Date MARJORIE - 7 assessed: 04/25/25 Source: Developed by Drs. Polo Mercedes, Cynthia Lowe, Philippe Barth and colleagues, with an educational noe from [employer]. Review of Systems Const All systems reviewed & are unremarkable except as noted in HPI and below Card Denies chest pain at rest, Denies chest pain with activity, Denies edema, Denies irregular heart rhythm, Denies claudication, Denies dyspnea, Denies dyspnea on exertion, Denies orthopnea, Denies paroxysmal nocturnal dyspnea and Denies slow heart rate Resp Denies cough, Denies dyspnea and Denies dyspnea on exertion GI Denies abdominal pain, Denies change in bowel habits, Denies excessive flatus, Denies nausea and Denies vomiting Skin/Breast Denies bleeding lesions, Denies changing lesions and Denies rash Neuro Denies lack of coordination Physical exam (Primary Care) Vital Signs: Last Vital Signs Pulse 79 06/19/25 08:15 BP 168/82 H 06/19/25 08:15 Pulse Ox 98 06/19/25 08:15 Oxygen Delivery Method Room Air 06/19/25 08:15 BMI result Body Mass Index 26.7 Tobacco/Smoking Status: Tobacco use Status Tobacco use date assessed 04/25/25 06/19/25 08:16 Patient Tobacco Use Status Never used Tobacco 06/19/25 08:34 Tobacco use type Cigarette 06/19/25 08:34 e-Cigarette/Vaping Use Never Used 06/19/25 08:34 PHQ-9: PHQ-9 Score PHQ-9: Total score 3 06/19/25 08:30 Depression Screening Interpretation: Negative Thrive Assessment: Date of Thrive Assessment Date Thrive assessed 04/25/25 06/19/25 08:16 Currently or been in a relationship where the following occur: I choose not to answer HENAK Head: Yes normal to inspection, Yes normocephalic and Yes atraumatic Ears: external ears normal Eyes General: appearance normal, both eyes and all related structures Eyelids: Yes eyelids normal Conjunctivae: conjunctivae normal Neck Neck: Yes normal visual inspection and Yes supple Resp Effort & Inspection: normal respiratory effort Auscultation: clear to auscultation bilaterally Cardio Jugular venous distension: no JVD Rate: regular rate Rhythm: regular rhythm Heart sounds: S1 normal heart sound present and S2 normal heart sound present GI Inspection: Yes normal to inspection Palpation (GI): Soft to palpation and nontender Auscultation: normal bowel sounds Skin General skin exam: no rashes or lesions noted Neuro General: no focal motor deficits Extrem General: Yes full ROM Psych Appearance: grossly normal Results AMB Hemoglobin A1c AMB Hemoglobin A1c 6.3 % Last Edit by ARSH Alarcon on 06/19/25 09:01 Coding Level of Care Code Est Pt Level 4 (08926) Complex EM visit Add On G2211 Diagnoses Elevated TSH R79.89 Essential hypertension I10 Impaired glucose tolerance R73.02 DVT (deep venous thrombosis) I82.409 Osteopenia M85.80 Additional Codes PHQ-9 - 50207 - PHQ-9 Billing: Yes ([id number]) Time Spent (min) 24 Assessment & Plan Assessment & Plan (1) Elevated TSH: Code(s): R79.89 - Other specified abnormal findings of blood chemistry Category: Medical (2) Essential hypertension: Code(s): I10 - Essential (primary) hypertension Category: Medical (3) Impaired glucose tolerance: Code(s): R73.02 - Impaired glucose tolerance (oral) Category: Medical (4) DVT (deep venous thrombosis): Code(s): I82.409 - Acute embolism and thrombosis of unspecified deep veins of unspecified lower extremity Category: Medical (5) Osteopenia: Code(s): M85.80 - Other specified disorders of bone density and structure, unspecified site Category: Medical Plan Plan Patient was informed and verbally consented to the use of an ambient scribe for clinic note documentation during this visit. 1. Impaired glucose tolerance The patient has a history of an HbA1c of 6.8% and a fasting glucose of 135 mg/dL from last year, establishing the diagnosis of diabetes, though she was previously unaware. A [id number] HbA1c was performed today to assess current glycemic control. Management decisions, including the potential initiation of medication, are deferred pending this result. Comprehensive fasting labs have been ordered for further evaluation. Her A1c is 6.3% today and this is why she has impaired glucose tolerance and not diabetes yet. Was advised low-carbohydrate diet. 2. Recurrent Deep Vein Thrombosis The patient has a history of two unprovoked DVTs and is on indefinite anticoagulation with Eliquis per hematology recommendation. She will continue Eliquis, and refills will be provided. The patient was reassured that skin changes and intermittent throbbing in her ankle are likely post-thrombotic and not alarming while she is on anticoagulation. She has a follow-up appointment with her craft center director in August, where a repeat ultrasound may be performed. 3. Health Maintenance The patient is due for a tetanus (Tdap) vaccine, as her last was in 2014, and a PCV20 pneumococcal vaccine. She was advised to get these immunizations at her preferred location. Comprehensive fasting labs, including checks for kidney function, thyroid function, and cholesterol, were ordered to re-evaluate her chronic conditions. 4. Hypertension The patient reports good blood pressure control at home, despite in-office elevation, suggesting white coat hypertension. She did not take her hydrochlorothiazide and lisinopril today. The plan is to continue her current antihypertensive regimen. Blood pressure goal is equal or less than 130/80. 5. TSH elevation Repeat thyroid vero. Orders: Orders Vitamin D 25-OH Total Today E55.9 - Vitamin D deficiency, unspecified Thyroid Stimulating Hormone Today R79.89 - Other specified abnormal findings of blood chemistry Thyroglobulin Antibodies Today R79.89 - Other specified abnormal findings of blood chemistry Lipid Panel Today E78.5 - Hyperlipidemia, unspecified Microalbumin, Random (w Creat) Today R80.9 - Proteinuria, unspecified Comprehensive [place]. Panel Fast Today I10 - Essential (primary) hypertension Free T4 (Free Thyroxine) Today R79.89 - Other specified abnormal findings of blood chemistry Vitamin B12 and Folate Today E53.8 - Deficiency of other specified B group vitamins Thyroid Peroxidase Antibodies Today R79.89 - Other specified abnormal findings of blood chemistry AMB Hemoglobin A1c Today Z13.9 - Encounter for screening, unspecified
== END 2025-06-19 09:03 | disposition home or self-care (01) ==
LOC: HO.HMCH 08:13
PROVIDERS: PCP Internal Medicine; Visit Provider Internal Medicine
DX: R79.89 Other specified abnormal findings of blood chemistry (principal); I10 Essential (primary) hypertension; R73.02 Impaired glucose tolerance (oral); I82.409 Acute embolism and thrombosis of unspecified deep veins of unspecified lower extremity; M85.80 Other specified disorders of bone density and structure, unspecified site; Z13.9 Encounter for screening, unspecified

== ENCOUNTER → 2025-06-19 08:12 | Outpatient (BNVA) | payer MEDICARE, SELFPAY | PROVIDERS: PCP Internal Medicine; Visit Provider Internal Medicine | DX: I10 Essential (primary) hypertension (principal); R73.02 Impaired glucose tolerance (oral); R79.89 Other specified abnormal findings of blood chemistry; I82.409 Acute embolism and thrombosis of unspecified deep veins of unspecified lower extremity; M85.80 Other specified disorders of bone density and structure, unspecified site | CPT/HCPCS: 83036; 96127; 99212 ==

== ENCOUNTER 2025-08-02 09:04 | Outpatient (REF) | payer MEDICARE, SELFPAY ==
--- OUTSIDE RECORDS SUMMARY | 2025-08-02 09:31 | XMS_ITS | Patient Health Record ---
Author Organization [facility] Address [address] [place] [address] Care Team Providers Care Book Sewer Name Role Phone Kate DURON, Felipe Primary Care Provider Polo Nihcols Unavailable [phone] Allergies Allergen (clinical drug ingredient) Drug/Non Drug [...] Fiber Adult Gummies Active Lisinopril 10 MG Tablet TAKE 1 TABLET BY MOUTH DAILY Oral; Duration: 90 Active hydroCHLOROthiazide 25 MG Tablet TAKE 1 TABLET BY MOUTH DAILY Oral; Duration: 90 Active Alendronate Sodium 70 MG Tablet Oral; Duration: 84 Active Immunizations Vaccine Route Administration Date Status Comme nts Influenza Unknown 04/15/2021 Administered Social History Tobacco Use: Social History Observation Description Date Details (start date - stop date) Never Smoker NA - NA Social History Drugs/Alcohol: Social Info Question Answer Notes Alcohol Screen Did you have a drink containing alcohol in the past year? Yes How often did you have a drink containing alcohol in the past year? 2 to 4 times a month (2 points) How many drinks did you have on a typical day when you were drinking in the past year? 1 or 2 drinks (0 point) How often did you have 6 or more drinks on one occasion in the past year? Never (0 point) Points 2 Interpretation Negative Tobacco Use: Social Info Question Answer Notes Tobacco Use/Smoking Patient is a nonsmoker Additional Details Category Social Info Options Details Miscellaneous: Marital status: Occupation: retired Section Notes: Nonsmoker; occ wine Problems Problem Type SNOMED Code ICD Code Onset Dates Problem Status W/U Status Risk Notes Problem Screening for malignant neoplasm of colon (025992088) Encounter for screening for malignant neoplasm of colon (Z12.11) Active confirmed Problem Constipation (35491506) Constipation, unspecified constipation type (K59.00) Active confirmed Problem Diverticulosis of colon (415567492) Diverticulosis of colon (K57.30) Active confirmed Plan Of Treatment Pending Test Test Name Order Date Pathology 10/14/2021 Future Test Test Name Order Date COLONOSCOPY 05/26/2021 Insurance Providers Payer Name Payer Address Payer Phone Subscriber Number Group Number Insured Name Patient Relationship to Insured Coverage Start Date Coverage End Date MEDICARE OF [place] [address] [place] [address] [id number] VLADISLAV HA Self - patient is the insured MEDEX ATTN CLAIMS [address] [place] [address] [id number] VLADISLAV HA Self - patient is the insured Medical (General) History Medical History History ICD Code Hypertension Asthma - mild intermittent Denies NV,DM,CVA,renal disease Urinary incontinence Negative colonoscopy approx 13 yrs ago w ith Dr. Wills Surgical History Surgery Date(Month/Year) Cataracts scheduled for 06/2021
[2025-08-02 10:17] LABS: Alanine Aminotransferase 16 U/L (0-31); Albumin Level 4.5 g/dL (3.5-5.0); Alkaline Phosphatase 61 U/L (39-117); Anion Gap 16 (12-20); Aspartate Amino Transferase 24 U/L (5-31); Blood Urea Nitrogen 42 mg/dL (9-16); Calcium 10.1 mg/dL (8.4-10.2); Carbon Dioxide 24 mmol/L (22-29); Chloride 104 mmol/L (96-108); Cholesterol 221 mg/dL (<200); Estimated Glomerular Filt Rate 35; HDL Cholesterol 72 mg/dL (>40); Potassium 4.1 mmol/L (3.3-5.1); Sodium 140 mmol/L (135-145); Total Protein 7.6 g/dL (6.5-8.0); Triglycerides 123 mg/dL (<150)
[2025-08-02 10:28] LABS: Free T4 (Free Thyroxine) 1.05 ng/dL (0.71-1.85); Thyroid Stimulating Hormone 3.46 uIU/mL (0.32-4.0)
[2025-08-02 10:41] LABS: Folate 14.5 ng/mL (> or = 4.0); Vitamin B12 822 pg/mL (200-900)
[2025-08-02 11:02] LABS: Microalbum/Creatinine Ratio Ur 21.3 ug/mg cr (<30)
[2025-08-05 21:48] LABS: Thyroglobulin Antibodies <1 IU/mL (< or = 1)
== END 2025-08-02 09:05 | disposition home or self-care (01) ==
LOC: HO.LAB 09:04
PROVIDERS: PCP Internal Medicine; Visit Provider Internal Medicine
DX: Z01.84 Encounter for antibody response examination (principal); I10 Essential (primary) hypertension; R79.89 Other specified abnormal findings of blood chemistry; R80.9 Proteinuria, unspecified; E53.8 Deficiency of other specified B group vitamins; E55.9 Vitamin D deficiency, unspecified; E78.5 Hyperlipidemia, unspecified
CPT/HCPCS: 36415; 80053; 80061; 82043; 82306; 82570; 82607; 82746; 84439; 84443; 86376; 86800

== ENCOUNTER 2025-08-14 10:03 | Outpatient (AMB) | payer MEDICARE, SELFPAY ==
[2025-08-14 10:06] VITALS: BP 158/70; PULSE 85; O2SAT 96; BMI 26.7
--- NOTE | 2025-08-14 10:06 | A.OFFVIS_ITS ---
Vital Signs 08/14/25 10:06 Height 5 ft 3 in Weight 151 lb BMI 26.7 BP 158/70 H Blood Pressure Location Lt brachial Position Sitting Pulse 85 Pulse Source Pulse Oximeter Pulse Oximetry (%) 96 Oxygen Delivery Method Room Air Intake Visit Reasons: Dyspnea Allergies Sulfa (Sulfonamide Antibiotics) (Sulfa (Sulfonamides)) Allergy (Mild, Verified 08/14/25 10:11) childhood allergy per patient-? seizure(was told by mother) HPI HPI Dyspnea: Details: 79-year-old lady, lifetime nonsmoker, with underlying history of asthma since 17 years of age controlled on albuterol MDI as needed, followed for environmental allergies and chronic cough/cough variant asthma. She continues on Breo, Dupixent, and albuterol MDI with good control of her symptoms. She denies any exacerbations. [facility] Medical History (Updated 06/19/25 @ 10:07 by Christy Zafar MD) Anxiety H/O food poisoning Osteoporosis Arthritis Asthma COVID-19 vaccine series completed Screening for colon cancer Hypertension Surgical History History of cataract extraction H/O colonoscopy Family History Father Alzheimers disease Mother CHF (congestive heart failure) Hypertension Stroke Maternal Uncle H/O vein stripping Maternal Uncle H/O vein stripping Maternal Uncle H/O vein stripping Social History (Updated 06/19/25 @ 08:34 by Christy Zafar MD) Household Members: None Housing: House Are you a primary direct support professional caregiver to a significant other at home: No Do you presently have visiting nurse or other home services: No Alcohol intake: current Alcohol intake frequency: a few times a week Alcohol type: wine Patient Tobacco Use Status: Never used Tobacco Tobacco use type: Cigarette e-Cigarette/Vaping Use: Never Used Second Hand Smoke Exposure: No Advance Directives Date on File: 06/15/21 service: No 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al status: retired 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 Cognitive needs: No Hearing needs: No Vision needs: Yes (glasses) Review of Systems Const Denies daytime sleepiness, Denies excessive sweating, Denies fatigue, Denies fever(s), Denies lethargy, Denies malaise, Denies night sweats, Denies snoring and Denies weight loss Eyes Denies blurry vision and Denies itchy eyes ENT Denies nasal congestion, Denies post nasal drip, Denies sinus pain, Denies sinus pressure and Denies other ( Thrush) Card Denies chest pain, Denies pedal edema, Denies dyspnea, Denies orthopnea and Denies paroxysmal nocturnal dyspnea Resp Denies cough, Denies hemoptysis, Denies excessive phlegm production, Denies dyspnea, Denies snoring and Denies wheezing GI Denies abdominal pain and Denies heartburn Musc Denies myalgias, Denies arthralgias and Denies joint swelling Skin/Breast Denies rash Neuro Denies memory loss and Denies seizure-like activity Psych Denies abnormal sleep pattern, Denies anxiety and Denies memory loss Endo Denies excessive sweating, Denies fatigue and Denies heat intolerance Jluis/Lymph Denies easy bruising Aller/Immun Denies itchy eyes, Denies seasonal rhinorrhea and Denies wheezing Physical Exam Vital Signs: Last Vital Signs Pulse 85 08/14/25 10:06 BP 158/70 H 08/14/25 10:06 Pulse Ox 96 08/14/25 10:06 Oxygen Delivery Method Room Air 08/14/25 10:06 BMI result Body Mass Index 26.7 Const General: no acute distress and alert Nutritional Appearance: not obese Orientation/consciousness: Other orientation findings ( oriented) HEENT Head: Yes atraumatic Eyes General: appearance normal, both eyes and all related structures Sclerae: sclerae normal EOM: EOMs intact bilaterally Neck Neck: Yes supple Lymphatic: no lymphadenopathy noted Resp Effort & Inspection: normal respiratory effort and no use of accessory muscles Auscultation: clear to auscultation bilaterally Cardio Rate: regular rate Rhythm: regular rhythm Heart sounds: no gallops, no murmurs and no rubs Skin General skin exam: other ( warm) Extrem General: No clubbing, No cyanosis and No edema Assessment & Plan Assessment & Plan (1) Environmental allergies: Code(s): Z91.09 - Other allergy status, other than to drugs and biological substances Category: Medical Plan: Well-controlled on Dupixent, Breo, and albuterol MDI. Continue current management. (2) Cough variant asthma: Code(s): J45.991 - Cough variant asthma Category: Medical Plan: Well controlled on Dupixent. Continue current regimen. Coding Level of Care Code Est Pt Level 4 (94271) Diagnoses Environmental allergies Z91.09 Cough variant asthma J45.991
--- OUTSIDE RECORDS SUMMARY | 2025-08-14 11:03 | XMS_ITS | Clinical Summary ---
Author Organization [facility] Address [address] [place] [address] Phone Care Team Providers Care Conditioner Tender Name Role Phone Felipe Love MD Primary Care Provider [phone] Allergies Active Allergy Reactions Criticality Noted Date [...] file Insurance MEDICARE PART A & B [facility] MEDEX SUPPLEMENT MEDICARE PART A & B MEDICARE PART A & B MEDICARE PART A & B MEDICARE PART A & B MEDICARE PART A & B MEDICARE PART A & B MEDICARE PART A & B Member Subscriber Plan / Payer (Ef fective 2012-Present) Name:Karina Diaz Member ID:[id number] Relation to Subscriber:Self Name:Karina Diaz Subscriber ID:[id number] Payer ID:[id number] Group ID:Not on file Type:Medicare Address: [employer] [address] [place] [address] MEDICARE PART A & B Member Subscriber Plan / Payer (Ef fective 2012-Present) Name:Karina Diaz Member ID:[id number] Relation to Subscriber:Self Name:Karina Diaz Subscriber ID:[id number] Payer ID:[id number] Group ID:Not on file Type:Medicare Address: [employer] [address] [place] [address] Care Teams Conditioner Tender Relationship Specialty Start Date End Date Felipe Love MD [address] [place] [address] [place] [address] PCP - General Internal Medicine 12/14/20 Additional Source Comments The information contained in this document represents components of the legal health record. It is not the complete legal health record.[facility]
--- OUTSIDE RECORDS SUMMARY | 2025-08-14 11:03 | XMS_ITS | Patient Health Record ---
Author Organization [facility] Address [address] [place] [address] Care Team Providers Care Nurse Licensed Practical Name Role Phone Kate DURON, Felipe Primary Care Provider Polo Nichols Unavailable [phone] Allergies Allergen (clinical drug ingredient) Drug/Non Drug [...] Problem Screening for malignant neoplasm of colon (252988487) Encounter for screening for malignant neoplasm of colon (Z12.11) Active confirmed Problem Constipation (26068758) Constipation, unspecified constipation type (K59.00) Active confirmed Problem Diverticulosis of colon (907354660) Diverticulosis of colon (K57.30) Active confirmed Plan Of Treatment Pending Test Test Name Order Date Pathology 10/14/2021 Future Test Test Name Order Date COLONOSCOPY 05/26/2021 Insurance Providers Payer Name Payer Address Payer Phone Subscriber Number Group Number Insured Name Patient Relationship to Insured Coverage Start Date Coverage End Date MED[place]ARE OF [place] [address] [place] [address] [phone] [id number] VLADISLAV HA Self - patient is the insured MED[employer] ATTN CLAIMS [address] [place] [address] [id number] VLADISLAV HA Self - patient is the insured Medical (General) History Medical History History ICD Code Hypertension Asthma - mild intermittent Denies NM,DM,CVA,renal disease Urinary incontinence Negative colonoscopy approx 13 yrs [address] w ith Dr. Wills Surgical History Surgery Date(Month/Year) Cataracts scheduled for 06/2021
== END 2025-08-14 10:16 | disposition home or self-care (01) ==
LOC: HO.HPS 10:04
PROVIDERS: PCP Internal Medicine; Visit Provider Internal Medicine Pulmonary Disease
DX: Z91.09 Other allergy status, other than to drugs and biological substances (principal); J45.991 Cough variant asthma
CPT/HCPCS: 99214

== ENCOUNTER → 2025-08-14 10:03 | Outpatient (BNVA) | payer MEDICARE, SELFPAY | PROVIDERS: PCP Internal Medicine; Visit Provider Internal Medicine Pulmonary Disease | DX: J45.991 Cough variant asthma (principal); Z91.09 Other allergy status, other than to drugs and biological substances; J82.83 Eosinophilic asthma | CPT/HCPCS: 99212 ==